=== PATIENT | female | born 1940 | race Caucasian/White ===

== ENCOUNTER 2016-04-07 08:12 | Inpatient (IN) | payer MEDICARE, BC ==
[~2016-04-07] VITALS: Ht 182.9 cm; Wt 76.4 kg
[2016-04-12] MEDS ORDERED: NEXI20CA PO (13:37)
[2016-06-23] MEDS ORDERED: CRANCAP2 PO (08:40)
[2016-07-18] MEDS ORDERED: ceFAZolin 2 GM PREMIX 50 ML IV SCH (06:30)
[2016-07-18] MEDS ORDERED: CHLORHEXIDINE GLUCONATE 4% SOLN 120 ML BTL TOP SCH (06:30)
[2016-07-18] MEDS ORDERED: ALEV220T14 PO (07:27)
[2016-07-18 07:28] VITALS: BP 176/91; PULSE 98; RESP 20; TEMP 97.9; O2SAT 96
[2016-07-18] MEDS ORDERED: METOPROLOL TARTRATE 25 MG TAB PO PRN (07:30)
[2016-07-18] MEDS ORDERED: LACTATED RINGER'S 1000 ML IV SCH (07:30)
[2016-07-18] MEDS ORDERED: INSULIN HUMAN REGULAR 1,000 UNITS/10 ML VIAL SQ PRN (07:30)
[2016-07-18] MEDS ORDERED: SODIUM CHLORID 0.9% 500 ML IV SCH (07:30)
[2016-07-18] MEDS ORDERED: MIDAZOLAM HCL 5 MG/5 ML VIAL ONE ×2 (08:47→09:56)
[2016-07-18] MEDS ORDERED: GENTAMICIN SULFATE 80 MG/2 ML VIAL ONE (08:59)
[2016-07-18] MEDS ORDERED: DEXAMETHASONE SOD PHOS 4 MG/ML VIAL ONE (09:29)
[2016-07-18] MEDS ORDERED: FAMOTIDINE 20 MG/2 ML VIAL ONE (09:42)
[2016-07-18] MEDS ORDERED: ACETAMINOPHEN 1000 MG/100 ML VIAL IV ONE (09:42)
[2016-07-18] MEDS ORDERED: PROPOFOL 200 MG/20 ML AMP IV ONE (09:58)
[2016-07-18] MEDS ORDERED: ONDANSETRON HCL 4 MG/2 ML VIAL IV PUSH ONE (09:58)
[2016-07-18] MEDS ORDERED: EXPAREL PERI-ARTICULAR INJECTION (TOTAL VOL. 100 ML) P-ARTICULR SCH ×2 (10:00)
[2016-07-18] MEDS ORDERED: TRANEXAMIC ACID IV SCH ×2 (10:00→13:00)
[2016-07-18] MEDS ORDERED: SODIUM CHLORIDE 0.9% IV SCH ×2 (10:00→13:00)
[2016-07-18] MEDS ORDERED: BUPIVACAINE HCL PF 0.5% 30 ML VIAL NB ONE (11:21)
[2016-07-18] MEDS ORDERED: DO NOT ADM ANY ANTICOAGULANT DRUGS XX PRN (12:33)
[2016-07-18] MEDS ORDERED: MAGNESIUM HYDROXIDE SUSP 30 ML CUP PO PRN (13:00)
[2016-07-18] MEDS ORDERED: MORPHINE SULFATE 4 MG/ML INJ IV PUSH PRN (13:00)
[2016-07-18] MEDS ORDERED: SODIUM CHLORIDE 0.9% FLUSH 5 ML FLUSH IVF PRN (13:00)
[2016-07-18] MEDS ORDERED: TRANEXAMIC ACID INJ 0 MG in SODIUM CHLORIDE 0.9% INJ 100 ML IV SCH (13:00)
[2016-07-18] MEDS ORDERED: Post-op Orders (for Pharmacy) MISC XX ONE (13:00)
[2016-07-18] MEDS ORDERED: ONDANSETRON HCL 4 MG/2 ML VIAL IVP PRN (13:00)
[2016-07-18] MEDS: LACTATED RINGER'S 1000 ML INJ 1,000 ML IV SCH (13:20)
[2016-07-18] MEDS: KETOROLAC TROMETHAMINE 30 MG/ML (IVP) VIAL IVP SCH ×2 (13:37→18:43)
--- NOTE | 2016-07-18 14:41 | RADRPT ---
EXAM DATE/TIME: 07/18/2016 13:09 [place] COMPARISON: No previous studies available for comparison. INDICATIONS : Post op right knee surgery. MEDICAL HISTORY : None. SURGICAL HISTORY : None. ENCOUNTER: Initial ACUITY: 1 day PAIN SCORE: 0/10 LOCATION: Right Knee. FINDINGS: AP and lateral views of the right knee were obtained and demonstrate the patient is status post arthr oplasty. The femoral and tibial components are intact and in normal alignment. There are postoperativ e changes involving the patella. A surgical drain is noted in place. CONCLUSION: Expected post operative changes status post arthroplasty. Emil Green MD on July 18, 2016 at 14:35 Board Certified Radiologist. This report was verified electronically.
--- NOTE | 2016-07-18 17:16 | MB ---
cc: ALEYDA PENA MD DATE OF CONSULTATION 06/17/16 DATE OF [address] Mcginnis REASON FOR CONSULTATION Medical management postoperatively. HISTORY OF PRESENT ILLNESS The patient is a very pleasant 76-year female with past medical history of gastroesophageal reflux disease. The patient is only taking Nexium at home. Also, the patient has arthritis for which she is taking care of by her primary care doctor and orthopedic as an outpatient. She failed outpatient therapy. She was advised to have a total knee arthroplasty. The patient was admitted today and had a total knee arthroplasty. The patient is seen in the PACU. At present, in the PACU the patient has no complaint. She denies any headache, dizziness, nausea, vomiting, chest pain, diaphoresis or palpitations. She has no pain, just slight ache at the surgical site. Her sensation is back. PAST MEDICAL HISTORY Gastroesophageal reflux disease. MEDICATIONS Nexium. ALLERGIES IODINE KEFLEX REVIEW OF SYSTEMS Negative for 10 systems. SOCIAL HISTORY The patient denies smoking, drinking or doing any drugs. FAMILY HISTORY Noncontributory. PHYSICAL EXAMINATION GENERAL: The patient is alert and oriented lying on bed without any apparent distress. VITAL SIGNS: The patient is afebrile, pulse is 68, respiratory rate 16, blood pressure 145/85, pulse of 98% on 2 liters. HEENT: Head is normocephalic. Negative conjunctival icterus mouth unremarkable. NECK: Supple. Negative increased JVD, negative thyromegaly. Central trachea. RESPIRATORY: Clear to auscultation. CARDIOVASCULAR: S1, [id number], negative S3 gallop. GI: Abdomen soft, no organomegaly. Positive bowel sounds. MUSCULOSKELETAL: Extremities no cyanosis or pedal edema appreciated. TERMITE TECHNICIAN: Alert and oriented. Normal facial features, moving bilateral toes. Moving upper extremities. LABORATORY DATA No new labs were reviewed. IMAGING STUDIES X-ray of the knee shows expected postoperative changes status post arthroplasty. ASSESSMENT 1. Right total knee arthroplasty due to severe arthritis. 2. Gastroesophageal reflux disease. RECOMMENDATIONS 1. Postop antibiotic, analgesics, anticoagulant and PT as per Ortho. 2. We will continue PPI for her gastroesophageal reflux disease. 3. Monitor blood pressure. 4. CBC, BMP in the morning. 5. Discussed with the patient. Thank you Dr. Mcginnis for the consult. We will follow with you. MD ROSHAN Ceron /4:19 PM /5:03 PM
[2016-07-18 17:45] VITALS: BP 124/66; PULSE 94; RESP 18; TEMP 96; O2SAT 96
[2016-07-18] MEDS ORDERED: ZOLPIDEM TARTRATE 5 MG TAB PO PRN (21:00)
--- NOTE | 2016-07-18 23:16 | MP ---
cc: Jordana MANN. DATE OF SURGERY: 07/18/2016 PREOPERATIVE DIAGNOSIS: Primary osteoarthritis right knee. POSTOPERATIVE DIAGNOSIS Primary osteoarthritis right knee. OPERATION PERFORMED Right total knee arthroplasty with Silke Triathlon Prosthesis (uncemented). SURGEON Venkatesh Mann MD ANESTHESIA Spinal with supplemental adductor canal block and local. INDICATIONS AND FINDINGS This 76 year-old woman has had right knee pain for the past 18 months. She did not respond to arthroscopic surgery and progressively worsened, in spite of the use of nonsteroidal anti-inflammatories, activity modification, exercise, intra-articular corticosteroids and ambulatory aids. The ability to walk was limited. She has difficulty ascending and descending stairs and getting out of a chair. She has difficulty going to her condo up and down the stairs. PHYSICAL FINDINGS Physical findings show some genu varum with medial laxity and crepitation on motion. There is tenderness in the medial compartment. She has effusion. RADIOGRAPHIC FINDINGS Radiographic findings including an x-ray and MRI showed significant arthritis in the knee with loss of articular cartilage to [id number] on the PA flexion view and the medial compartments and irregularity in the medial joint and some lateral and patellofemoral. OPERATIVE FINDINGS Operative findings showed significant arthritis in the medial compartment with exposed subchondral bone on femur and tibia. In addition there was irregularity in the lateral compartment and the patellofemoral compartment. The prosthesis used was a [place] Triathlon prosthesis. The femoral component was a size 3 right cruciate-retaining cementless. The tibia was a Tritanium baseplate size 4 with a an 11-mm spacer of X3 polyethylene also cruciate-retaining. The patella was a Tritanium backed patella with a size 32 asymmetric. PROCEDURE The patient was brought to the operating room and general anesthetic was administered. The patient had an adductor canal block preoperatively. She was brought to the operating room and had a general anesthetic administered. She was placed in a supine position on the operating table with a small bolster under the right hip. A pneumatic tourniquet was applied to the right thigh. The limb was then prepped with alcohol, Hibiclens and Chloraprep, and draped in the usual manner with the knee draped free. An appropriate time-out procedure was carried out. The wound site was injected after marking with Exparel. An anterior incision was then made from about three fingerbreadths above the superior medial pole of the patella down to the tibial tubercle on the medial side. The incision was deepened through the subcutaneous tissues to the retinacular structures which were exposed medially and laterally. The medial retinacular incision was made from the superior medial pole of the patella down to the tibial tubercle and up into the quadriceps tendon splitting it longitudinally in the medial one-third. The patella was reflected. Medial and lateral dissection was carried out. The infrapatellar fat pad was debulked. The posterior surface of patella was excised with the oscillating saw taking care to prevent injury to associated structures. After the patellar protector was placed, attention was directed the femur. Houston's Line was marked. A fenestration was made in the distal end of the femur and proximal end of the tibia for intramedullary referencing guides. The distal femoral cutting guide and jig were assembled for 5 degree 8-mm cut. Cutting block was stabilized with pins. The jig was removed. The distal femoral cut was completed with the oscillating saw. A sizing guide was positioned along Houston's Line and the epicondylar axis. The size of the femur was determined to be a size 3. The four-in-one cutting block was then positioned in place. Anterior and posterior cuts were made followed by posterior and anterior chamfer cuts. Osteophytes were trimmed. Medial and lateral meniscectomies were completed. The posterior osteophytes were trimmed. The tibia resection guide was positioned in place with the intramedullary referencing guide. The alignment was checked and the guide stabilized with pins. The depth of cut was then verified with the stylus. The cutting block was stabilized with pins. The jig was removed. The spacer block was used to determine the depth of cut. The proximal tibial cutting guide was adjusted and stabilized. The proximal tibial cut was completed with the oscillating saw. After checking again with the sizing block, it was determined that the prosthesis would be an 11 mm one. The tibial baseplate size 4 with an 11 mm spacer was inserted. This appeared to be appropriate. Femoral component was impacted into place. The patella drill guide was positioned in place and patella drill holes made. The 32 millimeter patella was chosen. The knee was taken through a range of motion which was easily 0 degrees extension to 145 degrees of flexion with excellent stability and flexion and extension. The femoral drill holes were made. The femoral and patella trial components were removed. The tibial spacer trial was removed after using the tibial punch through its guide. The tibial baseplate trial was removed. The tibial drill guide was positioned in place. Drill holes were made. Exparel was then used throughout the knee, especially in the posterior capsule. After cleaning the cut ends of bone with pulse lavage, the tibial baseplate was impacted into place and seated appropriately. An 11 millimeter spacer was inserted. The femoral component was then impacted into place and seated appropriately. The patella was then positioned in place and seated appropriately with the patella device. Drains were brought out the superolateral aspect of the suprapatellar pouch. Hemostasis was achieved with electrocautery. Wound closure then commenced using 0 Vicryl interrupted [id number] sutures for the retinacular and capsular structures, 2-0 Vicryl interrupted simple sutures with buried knots for the subcutaneous tissues and 4-0 Monocryl continuous subcuticular closure for the skin. The wound was dressed with Steri-Strips followed by dry dressing, sterile Sof-Rol, cooling pad further sterile Sof-Rol and Javy bandage from the base of the toe to midthigh. The patient was transferred from the operating room to the recovery room in satisfactory condition having tolerated the procedure well. Counts were correct. Specimens none. Estimated blood loss 100 mL. MD TRINH Funk/JERROD /12:25 PM /10:18 PM
[2016-07-19] VITALS (8 sets, daily range): BP systolic 118–148; BP diastolic 61–75; PULSE 69–87; RESP 13–18; TEMP 95.6–98.4; O2SAT 93–98
[2016-07-19] MEDS: KETOROLAC TROMETHAMINE 30 MG/ML (IVP) VIAL IVP SCH ×4 (00:05→18:09)
[2016-07-19] MEDS: LACTATED RINGER'S 1000 ML INJ 1,000 ML IV SCH ×2 (01:28→13:58)
[2016-07-19] MEDS: SODIUM CHLORIDE 0.9% FLUSH 5 ML FLUSH IVF SCH ×3 (05:39→23:12)
--- NOTE | 2016-07-19 06:44 | PD.ORT.PN ---
Subjective Post Op Day #: 1 Subjective Remarks She is doing well. There is little pain. She did not dangle or have PT. Objective Vitals Vital Signs Date Time Temp Pulse Resp B/P Pulse Ox O2 Delivery O2 Flow Rate FiO2 07/19/16 04:31 98.4 69 18 124/68 96 07/19/16 00:24 97.6 78 18 122/75 96 07/18/16 20:52 21 07/18/16 17:45 96.0 94 18 124/66 96 07/18/16 17:00 94 16 118/63 95 Room Air 07/18/16 16:15 16 98 07/18/16 16:00 62 16 128/84 97 Nasal Cannula 2 07/18/16 15:00 64 16 123/78 97 Nasal Cannula 2 07/18/16 14:00 68 16 145/85 98 Nasal Cannula 2 07/18/16 13:45 62 16 137/81 97 Nasal Cannula 2 07/18/16 13:30 66 16 146/82 98 Nasal Cannula 2 07/18/16 13:15 62 16 143/77 97 Nasal Cannula 2 07/18/16 13:00 64 16 126/72 95 Nasal Cannula 2 07/18/16 12:45 72 16 118/71 95 Nasal Cannula 2 07/18/16 12:34 97.7 86 16 115/74 93 Nasal Cannula 2 07/18/16 07:28 97.9 98 20 176/91 96 I/O 07/18/16 07/18/16 07/18/16 07/19/16 07/19/16 07/19/16 07:00 15:00 23:00 07:00 15:00 23:00 Intake Total 50 ml 500 ml 600 ml Output Total 60 ml 1040 ml 50 ml Balance -10 ml -540 ml 550 ml Intake Oral 500 ml 600 ml IV Total 50 ml Output Urine Total 900 ml Drainage Total 60 ml 140 ml 50 ml # Voids 5 # Bowel Movements 0 0 Imaging Last 24 hours Impressions Knee X-Ray 07/18/16 1258 Signed Impressions: Service Date/Time: Monday, July 18, 2016 13:09 - CONCLUSION: Expected post operative changes status post arthroplasty. Emil Green MD Objective Remarks She is resting comfortably, supine in bed in the [facility]. The neurovascular status is intact. The original dressing is dry and intact. Assessment & Plan Ortho Post Op Day #: 1 Problem List: (1) Status post total right knee replacement Plan: Continue postop care. Start PT. Assessment and Plan Condition: Good. Orthopaedically stable. DVT prophylaxis: WILBER stockings, sequentials, early mobilization, ASA. Discharge plans: Home with [facility], probably tomorrow. Has appointment. Jordana Mcginnis MD ([place]) Jul 19, 2016 06:44
[2016-07-19 08:32] LABS: HEMATOCRIT 37.7 % (35.0-46.0); MEAN CELL VOLUME 96.3 FL (80.0-100.0); MEAN CORPUSCULAR HEMOGLOBIN 33.5 PG (27.0-34.0); MEAN CORPUSCULAR HGB CONC 34.8 % (32.0-36.0); PLATELET COUNT 149 TH/MM3 (150-450); RED BLOOD COUNT 3.92 MIL/MM3 (4.00-5.30); REVIEW FLAG FINAL; WHITE BLOOD COUNT 9.9 TH/MM3 (4.0-11.0)
[2016-07-19 08:42] LABS: BICARBONATE 26.1 MEQ/L (21.0-32.0); POTASSIUM 3.6 MEQ/L (3.5-5.1)
[2016-07-19] MEDS ORDERED: NON-FORMULARY DRUG (Vitamins C & E (Cranberry Urinary Comfort) 2 CAP) PO SCH (09:00)
[2016-07-19] MEDS: PANTOPRAZOLE SOD 20 MG DELAYED RELEASE TAB PO SCH (09:38)
[2016-07-19] MEDS: ACETAMINOPHEN/HYDROcodone 325 MG/7.5 MG TAB PO PRN ×2 (09:41→23:12)
[2016-07-19] MEDS ORDERED: PNEUMOCOCCAL POLYVALENT INJ 25 MCG/0.5 ML SYR IM ONE (10:00)
[2016-07-19] MEDS: RIVAROXABAN 10 MG TAB PO SCH (11:36)
--- NOTE | 2016-07-19 13:58 | HHI.PR ---
Subjective Remarks No chest pain no , shortness of breath Cough, states seasonal No headache Appetite good Afebrile Objective Objective Results - Vital Signs Date Time Temp Pulse Resp B/P Pulse Ox O2 Delivery O2 Flow Rate FiO2 07/19/16 09:05 93 21 07/19/16 04:31 98.4 69 18 124/68 96 07/19/16 00:24 97.6 78 18 122/75 96 07/18/16 20:52 21 07/18/16 17:45 96.0 94 18 124/66 96 07/18/16 17:00 94 16 118/63 95 Room Air 07/18/16 16:15 16 98 07/18/16 16:00 62 16 128/84 97 Nasal Cannula 2 07/18/16 15:00 64 16 123/78 97 Nasal Cannula 2 07/18/16 14:00 68 16 145/85 98 Nasal Cannula 2 I/O 07/18/16 07/18/16 07/18/16 07/19/16 07/19/16 07/19/16 07:00 15:00 23:00 07:00 15:00 23:00 Intake Total 50 ml 500 ml 600 ml Output Total 60 ml 1040 ml 50 ml Balance -10 ml -540 ml 550 ml Intake Oral 500 ml 600 ml IV Total 50 ml Output Urine Total 900 ml Drainage Total 60 ml 140 ml 50 ml # Voids 5 # Bowel Movements 0 0 Result Diagram: 07/19/1632 07/19/16 0732 ROS General: Weakness (generalized), Other (10 point ROS complete, mild generalized weakness postop otherwise negative exam) Physical Exam Physical Exam PHYSICAL EXAMINATION GENERAL: This is a well-developed, well-nourished female who appears to be in no acute distress. She is alert and awake, responds to verbal stimuli. HEAD: Normocephalic without any lesion or mass noted. Facial features appear symmetric. OROPHARYNGEAL: Oropharynx without erythema or edema. NECK: Supple. No nuchal rigidity or lymphadenopathy. Trachea midline without deviation. CARDIAC: Regular rhythm, regular rate, S1 and S2 are heard. Murmur none; no gallops or rubs. LUNGS: Clear to auscultation bilaterally. No wheeze, no rhonchi or no rale. No use of accessory muscles on inspiration or expiration. ABDOMEN: Soft, nontender, no organomegaly or masses. Bowel sounds are heard in all four quadrants. No rebound. No guarding. EXTREMITIES: Trace edema right leg. Wrapped securely with cooling apparatus on. Drainage intimal dark red in container. Pulses equal bilateral. No cyanosis. NEUROLOGICAL: Patient mood and affect appropriate. No focal deficit SKIN:Warm and moist, dry Objective Remarks I Am doing okay I guess. Got up and walked X 1 today. A/P Assessment and Plan 1. Right total knee arthroplasty due to severe arthritis. 2. Gastroesophageal reflux disease. 3. Hyperglycemia mild, no known diabetes RECOMMENDATIONS Postop antibiotic, analgesics, anticoagulant and PT as per Ortho. We will continue PPI for her gastroesophageal reflux disease. Monitor blood pressure normal limits, afebrile, rate 60s to 90s, respirations 18. Discussed with the patient medical plan of care and any concerns Monitor nutrition Monitor blood sugar, and or any symptoms of hyperglycemia Discharge Planning rehab Discussed With: Nurse, Family (patient), Other (Dr. Meyers, patient seen on his behalf) Ami Ding Jul 19, 2016 13:58 Ami Ding Jul 19, 2016 13:58
[2016-07-19] MEDS: DOCUSATE SODIUM 100 MG CAP PO SCH (23:11)
[2016-07-20] VITALS (7 sets, daily range): BP systolic 97–138; BP diastolic 54–83; PULSE 72–89; RESP 16–20; TEMP 95.4–98.6; O2SAT 93–97
[2016-07-20] MEDS: KETOROLAC TROMETHAMINE 30 MG/ML (IVP) VIAL IVP SCH ×2 (01:19→08:51)
[2016-07-20] MEDS: LACTATED RINGER'S 1000 ML INJ 1,000 ML IV SCH ×2 (02:28→14:58)
--- NOTE | 2016-07-20 06:49 | PD.ORT.PN ---
Subjective Post Op Day #: 2 Subjective Remarks She is doing well. There is a little more pain than yesterday. She did well with PT. She has 13 steps to ascend/descend to access her home. She lives alone. Range of Motion 0 to 90 degrees. Distance Walked 100 feet, then 150 feet. Objective Vitals Vital Signs Date Time Temp Pulse Resp B/P Pulse Ox O2 Delivery O2 Flow Rate FiO2 07/20/16 04:00 97.2 81 20 137/83 95 07/20/16 00:00 97.5 81 20 130/77 93 07/19/16 20:40 97.5 80 15 118/61 95 07/19/16 19:39 97.5 81 13 118/61 95 07/19/16 18:35 21 07/19/16 15:45 96.1 75 13 120/63 98 07/19/16 12:00 95.8 87 16 128/71 97 07/19/16 09:05 93 21 07/19/16 08:00 95.6 84 16 148/71 95 I/O 07/19/16 07/19/16 07/19/16 07/20/16 07/20/16 07/20/16 07:00 15:00 23:00 07:00 15:00 23:00 Intake Total 600 ml 450 ml 240 ml 220 ml Output Total 50 ml 220 ml Balance 550 ml 450 ml 20 ml 220 ml Intake Oral 600 ml 240 ml 220 ml IV Total 450 ml Drainage Total 50 ml 220 ml # Voids 5 1 2 # Bowel Movements 0 0 0 220 drainage recorded was 170+50ml. Result Diagram: 07/19/16 0732 07/19/16 0732 Imaging Last 24 hours Impressions Knee X-Ray 07/18/16 1258 Signed Impressions: Service Date/Time: Monday, July 18, 2016 13:09 - CONCLUSION: Expected post operative changes status post arthroplasty. Emil Green MD Objective Remarks She is resting comfortably, supine in bed in the [facility]. The neurovascular status is intact. The original dressing is dry and intact. Assessment & Plan Ortho Post Op Day #: 2 Problem List: (1) Status post total right knee replacement Plan: Continue postop care and PT. Assessment and Plan Condition: Good. Orthopaedically stable. DVT prophylaxis: WILBER stockings, sequentials, early mobilization, Xarelto. Discharge plans: SNF for rehab, probably tomorrow. Has appointment. Rx: [place] 7.5/325. Jordana Mcginnis MD ([place]) Jul 20, 2016 06:49
[2016-07-20 06:58] LABS: HEMATOCRIT 35.6 % (35.0-46.0); REVIEW FLAG FINAL
[2016-07-20] MEDS ORDERED: XARE10TA PO (08:05)
[2016-07-20] MEDS ORDERED: HYDR-3580 PO (08:05)
--- NOTE | 2016-07-20 08:08 | HHI.FF ---
Face to Face Verification Diagnosis: (1) Status post total right knee replacement Physical Therapy Gait training Knee: Total knee, Protocol: Right, Gait training, Full weight bearing Right LE Weight Bearing: WB as tolerated Right LE Range of Motion: Active ROM (AROM, AAROM, PROM, PRE. ROM goal is 0 to 135 degrees. ROM in the OR was 0 to 145 degrees.) Nursing Nursing: Dressing changes Dressing Changes: Daily dressing change, Coverderm/Primapore Additional Instructions Remove steristrips on postop day 14. I have seen patient Mona San on 07/20/16. My clinical findings support the need for the requested home health care services because: Ltd mobility - disease progression Limited ability to care for self High risk of falls I certify that my clinical findings support that this patient is homebound because: Post-op weakness Unsteady gait/balance Unsafe to leave home unassisted Jordana Mcginnis MD (Charles) Jul 20, 2016 08:08
[2016-07-20] MEDS: PANTOPRAZOLE SOD 20 MG DELAYED RELEASE TAB PO SCH (08:51)
[2016-07-20] MEDS: SODIUM CHLORIDE 0.9% FLUSH 5 ML FLUSH IVF SCH ×2 (08:51→21:00)
[2016-07-20] MEDS: DOCUSATE SODIUM 100 MG CAP PO SCH ×2 (08:51→20:18)
[2016-07-20] MEDS: ACETAMINOPHEN/HYDROcodone 325 MG/7.5 MG TAB PO PRN ×3 (08:52→23:19)
[2016-07-20] MEDS: RIVAROXABAN 10 MG TAB PO SCH (11:28)
--- NOTE | 2016-07-20 13:22 | HHI.PR ---
Subjective Subjective Remarks Ambulating today No chest pain Shortness of breath MOM given for bowel regimen Mild to moderate pain Review of Systems Constitutional Constitutional: Weakness (mild postop) Constitutional Remarks 10 point ROS done. Positives noted some mild generalized weakness Musculoskeletal MS: Stiffness MS Remarks Right total knee, dressing clean, to be changed today Integumentary Skin: Wounds (Clean, dressing dry) Psychiatric Psychiatric: Normal Mood Vitals/Results Intake & Output 07/19/16 07/19/16 07/20/16 15:00 23:00 07:00 Intake Total 450 ml 240 ml 220 ml Output Total 220 ml Balance 450 ml 20 ml 220 ml Intake Oral 240 ml 220 ml IV Total 450 ml Drainage Total 220 ml # Voids 1 2 # Bowel Movements 0 0 Vital Signs Vital Signs Date Time Temp Pulse Resp B/P Pulse Ox O2 Delivery O2 Flow Rate FiO2 07/20/16 11:40 95.4 77 16 97/54 94 07/20/16 08:00 95.6 72 17 138/75 95 07/20/16 04:00 97.2 81 20 137/83 95 07/20/16 00:00 97.5 81 20 130/77 93 07/19/16 20:40 97.5 80 15 118/61 95 07/19/16 19:39 97.5 81 13 118/61 95 07/19/16 18:35 21 07/19/16 15:45 96.1 75 13 120/63 98 CBC/BMP: 07/20/16 0600 07/19/16 0732 Lab Results Laboratory Tests Test 07/20/16 06:00 Hemoglobin 12.0 GM/DL Hematocrit 35.6 % Imaging Remarks Last Impressions Knee X-Ray 07/18/16 1258 Signed Impressions: Service Date/Time: Monday, July 18, 2016 13:09 - CONCLUSION: Expected post operative changes status post arthroplasty. Emil Green MD Current Medications Active Medications Docusate Sodium (Colace) 100 mg BID PO; Start 07/19/16 at 21:00 Physical Exam General General Appearance: Well Developed, Well Nourished, No Acute Distress Eyes Eye Exam: Pupils Equal, Pupils Reactive Ears & Nose Ears & Nose Exam: Nasal Mucosa [place] Throat Throat Exam: Oral Mucosa [place] & Moist Neck Neck Exam: Neck Supple, Trachea Midline Pulmonary Resp Exam: Clear Bilaterally, Breath Sounds Equal, No Distress Cardiology CV Exam: Regular Gastrointestinal/Abdomen GI Exam: Bowel Sounds Present GI Remarks No BM in 2 days. MOM taken today Genitourinary Exam: Clear Urine Musculoskeletal MS Exam: Normal Tone, Good Strength MS Remarks Right right knee total, postop day 2 Integumentary Skin Exam: Clear, Warm, Dry, Normal Turgor Skin Remarks Clean incision line right knee Extremeties Extremities Exam: No Edema, Trace Edema Neurologic Neuro Exam: Alert, Awake, Oriented, Speech Clear, Moving All Extremities VTE Prophylaxis VTE Prophylaxis Device: SCDs Assessment/Plan Assessment/Plan Assessment and Plan 1. Right total knee arthroplasty due to severe arthritis. 2. Gastroesophageal reflux disease. 3. Hyperglycemia mild, no known diabetes 4. Debility mild, 5. Constipation mild RECOMMENDATIONS Postop antibiotic, analgesics, anticoagulant and PT as per Ortho. We will continue PPI for her gastroesophageal reflux disease. Monitor blood pressure normal limits, afebrile, rate 60s to 90s, respirations 18. Discussed with the patient medical plan of care and any concerns Monitor nutrition, appetite good Monitor blood sugar, and or any symptoms of hyperglycemia BMP in a.m. Monitor bowel regimen. Took MOM today. Denies any acute issues for now Plan to go to rehabilitation after 3 nights stay. Discharge Planning rehab Discussed With: Nurse, Family (patient), Other (Dr. Meyers, patient seen on his behalf) Discussed Condition with: Patient Ami DingSulma CEVALLOS Jul 20, 2016 13:22
[2016-07-21] VITALS: BP 121/62; PULSE 86; RESP 16; TEMP 99.4; O2SAT 94
[2016-07-21] MEDS: LACTATED RINGER'S 1000 ML INJ 1,000 ML IV SCH (03:28)
[2016-07-21] MEDS: ACETAMINOPHEN/HYDROcodone 325 MG/7.5 MG TAB PO PRN ×2 (04:19→09:45)
[2016-07-21 06:49] LABS: POTASSIUM 3.5 MEQ/L (3.5-5.1)
[2016-07-21 08:12] VITALS: BP 138/67; PULSE 80; RESP 16; TEMP 98.6; O2SAT 94
--- NOTE | 2016-07-21 08:45 | PD.ORT.PN ---
Subjective Post Op Day #: 3 Subjective Remarks She is doing well. There is less pain than yesterday. She has done well with PT. She has 13 steps to ascend/descend to access her home. She lives alone. Range of Motion -4 to 96 degrees. Distance Walked 200 feet. Objective Vitals Vital Signs Date Time Temp Pulse Resp B/P Pulse Ox O2 Delivery O2 Flow Rate FiO2 07/21/16 00:00 99.4 86 16 121/62 94 07/20/16 21:08 21 07/20/16 20:30 98.6 84 16 109/54 95 07/20/16 19:05 89 20 101/54 97 07/20/16 16:05 97.5 82 17 101/76 96 07/20/16 11:40 95.4 77 16 97/54 94 I/O 07/20/16 07/20/16 07/20/16 07/21/16 07/21/16 07/21/16 07:00 15:00 23:00 07:00 15:00 23:00 Intake Total 220 ml 720 ml 240 ml 480 ml Output Total 40 ml 70 ml Balance 180 ml 650 ml 240 ml 480 ml Intake Oral 220 ml 720 ml 240 ml 480 ml Drainage Total 40 ml 70 ml # Voids 2 3 2 3 # Bowel Movements 0 1 2 0 Result Diagram: 07/20/16 0600 07/21/16 0600 Imaging Last 24 hours Impressions Knee X-Ray 07/18/16 1258 Signed Impressions: Service Date/Time: Monday, July 18, 2016 13:09 - CONCLUSION: Expected post operative changes status post arthroplasty. Emil Green MD Objective Remarks She is resting comfortably, supine in bed in the [facility]. The neurovascular status is intact. The dressing is dry and intact. There is no erythema or induration. Assessment & Plan Ortho Post Op Day #: 3 Problem List: (1) Status post total right knee replacement Plan: Continue postop care and PT. Assessment and Plan Condition: Good. Orthopaedically stable. DVT prophylaxis: WILBER stockings, sequentials, early mobilization, Xarelto. Discharge plans: SNF for rehab today. Has appointment. Rx: [place] 7.5/325. Jordana Mcginnis MD ([place]) Jul 21, 2016 08:45
[2016-07-21] MEDS: DOCUSATE SODIUM 100 MG CAP PO SCH (09:41)
[2016-07-21] MEDS: PANTOPRAZOLE SOD 20 MG DELAYED RELEASE TAB PO SCH (09:41)
[2016-07-21] MEDS: SODIUM CHLORIDE 0.9% FLUSH 5 ML FLUSH IVF SCH (09:41)
--- NOTE | 2016-07-21 11:02 | HHI.PR ---
Subjective Interval History Patient is feeling better Some ache at surgical site Did walk today Review of system for 10 point system otherwise unremarkable Review of Systems Constitutional Constitutional: Weakness (mild postop) Musculoskeletal MS: Stiffness Integumentary Skin: Wounds (Clean, dressing dry) Psychiatric Psychiatric: Normal Mood Vitals/Results Intake & Output 07/20/16 07/20/16 07/21/16 15:00 23:00 07:00 Intake Total 720 ml 240 ml 480 ml Output Total 70 ml Balance 650 ml 240 ml 480 ml Intake Oral 720 ml 240 ml 480 ml Drainage Total 70 ml # Voids 3 2 3 # Bowel Movements 1 2 0 Vital Signs Vital Signs Date Time Temp Pulse Resp B/P Pulse Ox O2 Delivery O2 Flow Rate FiO2 07/21/16 08:12 98.6 80 16 138/67 94 07/21/16 00:00 99.4 86 16 121/62 94 07/20/16 21:08 21 07/20/16 20:30 98.6 84 16 109/54 95 07/20/16 19:05 89 20 101/54 97 07/20/16 16:05 97.5 82 17 101/76 96 07/20/16 11:40 95.4 77 16 97/54 94 CBC/BMP: 07/20/16 0600 07/21/16 0600 Lab Results Laboratory Tests Test 07/21/16 06:00 Sodium Level 141 MEQ/L Potassium Level 3.5 MEQ/L Chloride Level 104 MEQ/L Carbon Dioxide Level 27.0 MEQ/L Anion Gap 10 MEQ/L Blood Urea Nitrogen 9 MG/DL Creatinine 0.53 MG/DL Estimat Glomerular Filtration 112 ML/MIN Rate Random Glucose 102 MG/DL Calcium Level 8.5 MG/DL Physical Exam General General Appearance: Well Developed, Well Nourished, No Acute Distress Eyes Eye Exam: Pupils Equal, Pupils Reactive Ears & Nose Ears & Nose Exam: Nasal Mucosa Ivey Throat Throat Exam: Oral Mucosa Ivey & Moist Neck Neck Exam: Neck Supple, Trachea Midline Pulmonary Resp Exam: Clear Bilaterally, Breath Sounds Equal, No Distress Cardiology CV Exam: Regular Gastrointestinal/Abdomen GI Exam: Bowel Sounds Present Genitourinary Exam: Clear Urine Musculoskeletal MS Exam: Normal Tone, Good Strength MS Remarks Dressing on surgical area Integumentary Skin Exam: Clear, Warm, Dry, Normal Turgor Extremeties Extremities Exam: No Edema, Trace Edema Neurologic Neuro Exam: Alert, Awake, Oriented, Speech Clear, Moving All Extremities VTE Prophylaxis VTE Prophylaxis Device: SCDs VTE Remarks Xarelto Assessment/Plan Assessment/Plan Assessment and Plan 1. Right total knee arthroplasty due to severe arthritis. 2. Gastroesophageal reflux disease. 3. Hyperglycemia mild, no known diabetes 4. Debility mild, 5. Constipation mild RECOMMENDATIONS Postop antibiotic, analgesics, anticoagulant and PT as per Ortho. continue PPI for her gastroesophageal reflux disease. Stable blood pressure Labs reviewed Discussed with the patient medical plan of care and any concerns Monitor nutrition, appetite good Monitor bowel regimen. Denies any acute issues for now Plan to go to rehabilitation hopefully today. Mary Meyers MD Jul 21, 2016 11:02
[2016-07-21] MEDS: RIVAROXABAN 10 MG TAB PO SCH (11:26)
[2016-07-21 12:10] VITALS: BP 98/53; PULSE 76; RESP 16; TEMP 97.1; O2SAT 98
--- NOTE | 2016-09-06 08:01 | MD ---
cc: Jordana MANN. ADMISSION DATE: 07/18/2016 DISCHARGE DATE: 07/21/2016 ADMISSION DIAGNOSIS Primary osteoarthritis right knee FINAL DIAGNOSIS Primary osteoarthritis right knee OPERATION PERFORMED Right total knee arthroplasty using a Silke Triathlon prosthesis (uncemented). PRESENT ILLNESS This 76-year-old woman has had 18 months of right knee pain that did not respond to conservative measures and arthroscopic surgery. She has used anti-inflammatory agents, activity modification, exercises, intra-articular steroids and ambulatory aids. She has difficulty ascending and descending stairs and getting out of a chair. She has had difficulty ambulating. Physical findings showed genu varum with medial laxity and crepitation on motion. There is tenderness in the medial compartment. She had an effusion. Radiographic findings showed changes consistent with loss of articular cartilage to [id number] in the medial compartment with irregularity in the joint line and patellofemoral and lateral findings as well. HOSPITAL COURSE The patient was admitted on 07/18/2016. She had the above-noted operative procedure carried out after having an abductor canal block preoperatively. She tolerated the procedure well. In post anesthesia, she was started on a continuous passive motion device which was used throughout the procedure while in bed. She did not start therapy the day of surgery. She remained afebrile. There was very little pain. On the day after surgery, she was started on physical therapy. DVT prophylaxis was initiated with WILBER stockings, sequential and aspirin. By the second postoperative day, she had been doing relatively well with therapy. She was able to walk 100 feet and then 150 feet. Her range of motion was 0 degrees extension to 90 degrees of flexion. She did have difficulty With home and consideration was for appropriate discharge plans since she had 13 steps to ascend and descend to access her home and lives alone. She remained afebrile. Her hemoglobin was 13.1. She continued to progress well. DVT prophylaxis was initiated with WILBER stockings and Xarelto. Arrangements were being made for discharge to a prison facility. On the third postoperative day, she was continuing to make progress. She walked 200 feet. Her range of motion was minus 4 degrees extension to 96 degrees of flexion. She remained afebrile. She was discharged to a prison facility for rehabilitation on that date. She will continue with Xarelto as well as the [place]. She has a follow-up appointment. MD TRINH Funk/TRISTAN /6:29 PM /7:44 AM
== END 2016-07-21 12:55 | DRG 470 ==
LOC: HSDI 07-18 05:08 → N06B 07-18 17:41
PROVIDERS: ADMIT Orthopaedic Surgery; ATTEND Orthopaedic Surgery
PROC: 0QRD0JZ Replacement of Right Patella with Synthetic Substitute, Open Approach (ICD-10-PCS; 2016-07-18)
PROC: 3E0T3CZ (ICD-10-PCS; 2016-07-18)
PROC: 0SRC0JA Replacement of Right Knee Joint with Synthetic Substitute, Uncemented, Open Approach (ICD-10-PCS; principal; 2016-07-18 10:13)
DX: M17.11 Unilateral primary osteoarthritis, right knee (principal); K21.9 Gastro-esophageal reflux disease without esophagitis; M21.161 Varus deformity, not elsewhere classified, right knee; R73.9 Hyperglycemia, unspecified; K59.00 Constipation, unspecified; Z23 Encounter for immunization; Z87.891 Personal history of nicotine dependence
CPT/HCPCS: 73560; 80048; 85014; 85018; 85027; 86850; 86900; 86901; 90471; 90732; 94150; C1776; C9290; G0009; J0131; J0690; J1100; J1580; J1885; J2250; J2405; J3010; J7120

== ENCOUNTER → 2016-06-23 | Outpatient (CLI) | payer MEDICARE, BC ==
[~2016-06-23] MED LIST: ALEV220T14 PO; CRANCAP2 PO; HYDR-3580 PO; NEXI20CA PO; XARE10TA PO
[2016-06-23 09:15] LABS: HEMATOCRIT 45.1 % (35.0-46.0); MEAN CELL VOLUME 95.7 FL (80.0-100.0); MEAN CORPUSCULAR HGB CONC 34.5 % (32.0-36.0); PLATELET COUNT 146 TH/MM3 (150-450); RED BLOOD COUNT 4.71 MIL/MM3 (4.00-5.30); RED CELL DISTRIBUTION WIDTH 12.7 % (11.6-17.2); REVIEW FLAG FINAL; WHITE BLOOD COUNT 7.1 TH/MM3 (4.0-11.0)
[2016-06-23 09:18] LABS: APTT (PATIENT) 24.5 SEC (24.3-30.1)
[2016-06-23 09:40] LABS: BICARBONATE 29.3 MEQ/L (21.0-32.0); POTASSIUM 4.5 MEQ/L (3.5-5.1)
[2016-06-23 10:40] LABS: BACTERIA, URINE MANY /hpf; BLOOD, URINE MOD (NEG); COMMENT (UR) CATH-CULTURE IND; CULTURE IF INDICATED CATH CULTURE IND; GLUCOSE,URINE NEG (NEG); KETONE, URINE NEG (NEG); MUCUS URINE FEW /lpf (OCC); NITRITE,URINE NEG (NEG); PH, URINE 5.5 (5.0-8.5); SQUAMOUS EPITHELIAL CELL URINE 1 /hpf (0-5); URINE COLOR YELLOW (YELLW/STRAW)
== END ==
LOC: CPRE 11:53
PROVIDERS: ATTEND Orthopaedic Surgery
DX: Z01.812 Encounter for preprocedural laboratory examination (principal); M17.11 Unilateral primary osteoarthritis, right knee; M79.609 Pain in unspecified limb; B96.20 Unspecified Escherichia coli [E. coli] as the cause of diseases classified elsewhere; R82.99 Other abnormal findings in urine
CPT/HCPCS: 36415; 80048; 81001; 85027; 85610; 85730; 87077; 87086; 87186

== ENCOUNTER 2017-07-31 16:09 | Inpatient (IN) | payer MEDICARE, BC ==
[~2017-07-31] VITALS: Ht 152.4 cm; Wt 65.8 kg
[~2017-07-31 16:09] MED LIST changes: -ALEV220T14 PO
[2017-07-31 16:24] VITALS: BP 131/74; PULSE 89; RESP 19; TEMP 97.4; O2SAT 96
[2017-07-31] MEDS ORDERED: ESOM1CAP6 PO (16:38)
--- NOTE | 2017-07-31 16:47 | PD ---
HPI Chief Complaint: Abdominal Pain Time Seen by Provider: 16:36 Travel History International Travel<30 days: No Contact w/Intl Traveler<30days: No Traveled to known affect area: No History of Present Illness HPI 77yo F with PMH of GERD here with c/o nausea, vomiting and abdominal pain for 2 days. Said she has not been able to keep anything down and then started having abdominal pain and generalized weakness today. Said abdominal pain is generalized and started after vomiting. Denies any hematemesis. Denies any fever, chest pain, sob, diarrhea, dysuria, hematuria. Pt takes ibuprofen and nexium daily. Said she has neuropathy in her feet but does not want to take lyrica so take ibuprofen instead. Last colonoscopy was 2 years ago and normal. Normal bowel movement today. PFSH Past Medical History Arthritis: Yes Cardiovascular Problems: No Diabetes: No Endocrine: No GERD: Yes Genitourinary: Yes (FREQUENT UTI) Hepatitis: No Hiatal Hernia: Yes Immune Disorder: No Medical other: No Musculoskeletal: Yes (ARTHRITIS) Neurologic: No Psychiatric: No Reproductive: No Respiratory: No Thyroid Disease: No Influenza Vaccination: Yes ?: Not Past Surgical History Abdominal Surgery: Yes AICD: No Body Medical Devices: NA Cardiac Surgery: No Section: Yes (X 3) Cholecystectomy: Yes Ear Surgery: No Endocrine Surgery: No Eye Surgery: Yes (BILATERAL CATARACT, LASER LEFT EYE LENS) Genitourinary Surgery: No Gynecologic Surgery: Yes (PARTIAL HYSTERECTOMY, 3 C SECTIONS) Hysterectomy: Yes Joint Replacement: Yes (KNEE) Oral Surgery: No Pacemaker: No Thoracic Surgery: No Social History Alcohol Use: Yes (wine occ) Tobacco Use: No Substance Use: No Allergies-Medications (Allergen,Severity, Reaction): Coded Allergies: iodine (Unverified Adverse Reaction, Severe, FLUSH, 07/31/17) 05/19/13 DENIES ALLERGY potassium iodide (Unverified Adverse Reaction, Severe, FLUSH, 07/31/17) 05/19/13 DENIES ALLERGY povidone-iodine (Unverified Adverse Reaction, Severe, FLUSH, 07/31/17) 05/19/13 DENIES ALLERGY sodium iodide (Unverified Adverse Reaction, Severe, FLUSH, 07/31/17) 05/19/13 DENIES ALLERGY sodium iodide (Unverified Adverse Reaction, Severe, FLUSH, 07/31/17) 05/19/13 DENIES ALLERGY cephalexin (Unverified Adverse Reaction, Intermediate, NAUSEA, 07/31/17) Reported Meds & Prescriptions Reported Meds & Active Scripts Active Reported Nexium 24 HR (Esomeprazole DR) 20 Mg Capdr 20 Mg PO DAILY Review of Systems Except as stated in HPI: all other systems reviewed are Neg Physical Exam Narrative GENERAL: 77yo F not in distress. SKIN: Focused skin assessment warm/dry. HEAD: Atraumatic. Normocephalic. CARDIOVASCULAR: Regular rate and rhythm. No murmur appreciated. RESPIRATORY: No accessory muscle use. Clear to auscultation. Breath sounds equal bilaterally. GASTROINTESTINAL: Abdomen soft, +TTP epigastric region. +Left lower abdominal ttp. No rebound tenderness or guarding. MUSCULOSKELETAL: No obvious deformities. No clubbing. No cyanosis. No edema. NEUROLOGICAL: Awake and alert. No obvious cranial nerve deficits. Motor grossly within normal limits. Normal speech. PSYCHIATRIC: Appropriate mood and affect; insight and judgment normal. Data Data Last Documented VS Vital Signs Date Time Temp Pulse Resp B/P (MAP) Pulse Ox O2 Delivery O2 Flow Rate FiO2 07/31/17 17:37 16 07/31/17 17:30 82 140/67 (91) 97 Room Air 07/31/17 16:24 97.4 Orders Orders Complete Blood Count With Diff (07/31/17 16:42) Comprehensive Metabolic Panel (07/31/17 16:42) Lipase (07/31/17 16:42) Prothrombin Time / Inr (Pt) (07/31/17 16:42) Act Partial Throm Time (Ptt) (07/31/17 16:42) Urinalysis - C+S If Indicated (07/31/17 16:42) Electrocardiogram (07/31/17 16:42) Ct Abd/Pel W/O Iv Contrast (07/31/17 ) Ondansetron Inj (Zofran Inj) (07/31/17 17:00) Morphine Inj (Morphine Inj) (07/31/17 17:00) Sodium Chlor 0.9% 1000 Ml Inj (Ns 1000 M (07/31/17 18:30) Morphine Inj (Morphine Inj) (07/31/17 18:30) NPO (07/31/17 18:21) Consult Gastroenterology (07/31/17 ) Potassium, Serum (K) (07/31/17 18:31) (Hub Use Only)Inp Phy Cons/Ref (07/31/17 ) Admit Order (Ed Use Only) (07/31/17 18:47) Labs Laboratory Tests Test 07/31/17 17:25 White Blood Count 6.5 TH/MM3 Red Blood Count 4.57 MIL/MM3 Hemoglobin 15.1 GM/DL Hematocrit 46.9 % Mean Corpuscular Volume 102.6 FL Mean Corpuscular Hemoglobin 33.1 PG Mean Corpuscular Hemoglobin Concent 32.2 % Red Cell Distribution Width 14.4 % Platelet Count 161 TH/MM3 Mean Platelet Volume 8.4 FL Neutrophils (%) (Auto) 83.6 % Lymphocytes (%) (Auto) 13.1 % Monocytes (%) (Auto) 2.4 % Eosinophils (%) (Auto) 0.1 % Basophils (%) (Auto) 0.8 % Neutrophils # (Auto) 5.3 TH/MM3 Lymphocytes # (Auto) 0.9 TH/MM3 Monocytes # (Auto) 0.2 TH/MM3 Eosinophils # (Auto) 0.0 TH/MM3 Basophils # (Auto) 0.1 TH/MM3 CBC Comment DIFF FINAL Differential Comment Prothrombin Time 11.8 SEC Prothromb Time International Ratio 1.2 RATIO Activated Partial Thromboplast Time 27.3 SEC Blood Urea Nitrogen 7 MG/DL Creatinine 0.70 MG/DL Random Glucose 102 MG/DL Total Protein 8.5 GM/DL Albumin 3.4 GM/DL Calcium Level 8.7 MG/DL Alkaline Phosphatase 199 U/L Aspartate Amino Transf (AST/SGOT) 304 U/L Alanine Aminotransferase (ALT/SGPT) 90 U/L Total Bilirubin 2.0 MG/DL Sodium Level 134 MEQ/L Potassium Level 5.8 MEQ/L Chloride Level 102 MEQ/L Carbon Dioxide Level 11.5 MEQ/L Anion Gap 21 MEQ/L Estimat Glomerular Filtration Rate 81 ML/MIN Lipase 8640 U/L [facility] Medical Decision Making Medical Screen Exam Complete: Yes Emergency Medical Condition: Yes Interpretation(s) EKG: NSR 76bpm. Normal axis. No ST segment elevation or depression. Differential Diagnosis Diverticulitis vs. gastroenteritis vs. pancreatitis vs. peptic ulcer disease. gastritis vs. UTI Narrative Course 77yo F with abdominal pain, vomiting for 2 days. Labs reviewed, no leukocytosis. Potassium is elevated at 5.8. Nurse informed me that the blood draw was against a valve and it was a slow draw. Even though it does not say it is hemolyzed, pt is vomiting and hasnt kept anything down so will repeat potassium level and treat if it is still elevated. No signs of hyperkalemia on EKG. CO2 low at 11.5. Pt given NS IVF. LFTs, bilirubin elevated. Lipase elevated at 8640. UA pending. CT a/p showed abnormal appearance of peripancreatic tissue with induration of the fat and poor delineation of head and body. Findings suggest pancreatitis. Pt given zofran and morphine and pain is better but still there. Will give more morphine. Pt said she drinks socially, a few times a week. Said she had cholecystectomy years ago. Had knee replacement last year and was on xarelto prophylactically but has not taken it since last year. I discussed case with Dr. Cruz and accepted to her service. I was informed by my nurse that the repeat potassium was clogged and they had to redraw it. blood bank laboratory technologist came and was finally able to redraw it. Pt is currently leaving the ED and she will not be here in the ED when her repeat potassium comes back so Dr. Roman paged to inform her of this and to treat hyperkalemia if repeat is still elevated. I discussed with Dr. Abel Ventura' s PA and she will follow up on the repeat potassium level and treat accordingly. Repeat K is 4.2. No treatment needed. Diagnosis Primary Impression: Acute pancreatitis Qualified Codes: K85.90 - Acute pancreatitis without necrosis or infection, unspecified Admitting Information Admitting Physician Requests: Admit Fang Red DO Jul 31, 2017 16:47
[2017-07-31] MEDS ORDERED: MORPHINE SULFATE 2 MG/ML INJ IV PUSH ONE ×2 (17:00→18:30)
[2017-07-31] MEDS ORDERED: ONDANSETRON HCL 4 MG/2 ML VIAL IV PUSH ONE (17:00)
[2017-07-31 17:30] VITALS: BP 140/67; PULSE 82; RESP 16; O2SAT 97
[2017-07-31 17:36] LABS: AUTOMATED NEUTROPHIL # 5.3 TH/MM3 (1.8-7.7); BASOPHIL # 0.1 TH/MM3 (0-0.2); BASOPHIL % 0.8 % (0.0-2.0); EOSINOPHIL % 0.1 % (0.0-4.0); HEMATOCRIT 46.9 % (35.0-46.0); HEMOGLOBIN 15.1 GM/DL (11.6-15.3); LYMPH % 13.1 % (9.0-44.0); LYMPHOCYTE # 0.9 TH/MM3 (1.0-4.8); MEAN CELL VOLUME 102.6 FL (80.0-100.0); MEAN CORPUSCULAR HEMOGLOBIN 33.1 PG (27.0-34.0); MEAN CORPUSCULAR HGB CONC 32.2 % (32.0-36.0); MEAN PLATELET VOLUME 8.4 FL (7.0-11.0); MONO % 2.4 % (0.0-8.0); MONOCYTE # 0.2 TH/MM3 (0-0.9); NEUT % 83.6 % (16.0-70.0); PLATELET COUNT 161 TH/MM3 (150-450); RED BLOOD COUNT 4.57 MIL/MM3 (4.00-5.30); RED CELL DISTRIBUTION WIDTH 14.4 % (11.6-17.2); WHITE BLOOD COUNT 6.5 TH/MM3 (4.0-11.0)
[2017-07-31 17:47] LABS: CHLORIDE 102 MEQ/L (98-107); SODIUM (NA) 134 MEQ/L (136-145)
[2017-07-31 17:52] LABS: ALBUMIN 3.4 GM/DL (3.4-5.0); BICARBONATE 11.5 MEQ/L (21.0-32.0); BLOOD UREA NITROGEN 7 MG/DL (7-18); CALCIUM 8.7 MG/DL (8.5-10.1); GLUCOSE,RANDOM 102 MG/DL (74-106); INTERNATIONAL NORMALIZED RATIO 1.2 RATIO; PROTHROMBIN TIME - PATIENT 11.8 SEC (9.8-11.6)
--- NOTE | 2017-07-31 17:54 | RADRPT ---
EXAM DATE/TIME: 07/31/2017 17:07 [facility] COMPARISON: No previous studies available for comparison. INDICATIONS : Vomiting, and left sided abdominal pain. ORAL CONTRAST: No oral contrast ingested. RADIATION DOSE: 12.84 CTDIvol (mGy) MEDICAL HISTORY : Gastroesophageal reflux disease. Hiatal hernia. Skin cancer. SURGICAL HISTORY : Cholecystectomy. Hysterectomy. section. ENCOUNTER: Initial ACUITY: 3 days PAIN SCALE: 0/10 LOCATION: Left pelvis abdomen TECHNIQUE: Volumetric scanning of the abdomen and pelvis was performed. Using automated exposure control and ad justment of the mA and/or kV according to patient size, radiation dose was kept as low as reasonably achievable to obtain optimal diagnostic quality images. DICOM format image data is available electro nically for review and comparison. FINDINGS: LOWER LUNGS: The visualized lower lungs are clear. Moderate-sized hiatus hernia containing the fundus of the stom ach. LIVER: Diffuse fatty change throughout the liver. No biliary ductal dilatation. Hemoclips in the brianna fro m prior cholecystectomy. SPLEEN: Normal size without lesion. PANCREAS: There is induration of the fat about the pancreas and in the anterior pararenal space. No focal flui d collections seen. No focal cystic areas in the pancreas. The pancreatic duct is not identified. There is poor delineation of the margins of the head and distal body stop KIDNEYS: Normal in size and shape. There is no mass, stone, or hydronephrosis. ADRENAL GLANDS: Within normal limits. VASCULAR: There is no aortic aneurysm. BOWEL/MESENTERY: No dilated loops of small large bowel. Diverticula are seen scattered throughout the entire colon wi th greatest concentration in the sigmoid colon; no radiographic evidence of diverticulitis. ABDOMINAL WALL: Within normal limits. RETROPERITONEUM: There is no lymphadenopathy. BLADDER: No wall thickening or mass. REPRODUCTIVE: Hysterectomy. In the left adnexal region, there is a 3.7 x 2.3 cm smooth margin oval low dense area with mean CT density 7 Hounsfield units. This could be ovarian in origin. INGUINAL: There is no lymphadenopathy or hernia. MUSCULOSKELETAL: Within normal limits for patient age. CONCLUSION: 1. Abnormal appearance the peripancreatic tissues with induration of the fat and poor delineation of the head and body. The findings suggest pancreatitis. No focal cystic areas seen and no calcificati ons. 2. Diffuse fatty change in the liver. 3. Diverticulosis of the colon without radiographic evidence of diverticulitis. 4. 3.7 cm low-density lesion in the left adnexal region of uncertain significance. This could be rel ated to the ovary. Chapincito Abbais MD on July 31, 2017 at 17:47 Board Certified Radiologist. This report was verified electronically.
[2017-07-31 17:55] LABS: ALT (GPT) 90 U/L (10-53); AST (GOT) 304 U/L (15-37); GLOMERULAR FILTRATION RATE 81 ML/MIN (>89)
[2017-07-31 17:57] LABS: TOTAL PROTEIN 8.5 GM/DL (6.4-8.2)
[2017-07-31 17:58] LABS: ALKALINE PHOSPHATASE 199 U/L (45-117)
[2017-07-31] MEDS ORDERED: SODIUM CHLOR 0.9% 1000 ML INJ 1,000 ML IV ONE (18:30)
[2017-07-31 18:58] VITALS: BP 135/70; PULSE 92; RESP 16; O2SAT 94
[2017-07-31] MEDS ORDERED: LORazepam 2 MG TAB PO PRN (19:00)
[2017-07-31] MEDS ORDERED: MORPHINE SULFATE 8 MG/ML INJ IV PUSH PRN (19:00)
[2017-07-31] MEDS ORDERED: LORazepam 2 MG/ML VIAL IV PUSH PRN ×4 (19:00)
[2017-07-31] MEDS ORDERED: LORazepam 1 MG TAB PO PRN (19:00)
[2017-07-31] MEDS ORDERED: FLUMAZENIL 0.5 MG/5 ML VIAL IV PUSH PRN (19:00)
[2017-07-31] MEDS ORDERED: SODIUM CHLORIDE 0.9% FLUSH 10 ML FLUSH IV FLUSH PRN (19:00)
[2017-07-31] MEDS: PANTOPRAZOLE SOD 40 MG DELAYED RELEASE TAB PO SCH (20:00)
[2017-07-31] MEDS ORDERED: SODIUM POLYSTYRENE SULFONATE SUSP 15 GM/60 ML CUP PO ONE (20:00)
[2017-07-31] MEDS ORDERED: KETOROLAC TROMETHAMINE 30 MG/ML (IVP) VIAL IVP PRN (20:00)
[2017-07-31] MEDS: ENOXAPARIN SODIUM 40 MG/0.4 ML SYRINGE SQ SCH (20:01)
[2017-07-31 20:48] VITALS: BP 137/71; PULSE 89; RESP 18; O2SAT 95
[2017-07-31 21:15] VITALS: BP 161/74; PULSE 88; RESP 18; TEMP 96.6; O2SAT 95
[2017-07-31] MEDS: SODIUM CHLORIDE 0.9% FLUSH 10 ML FLUSH IV FLUSH SCH (22:39)
[2017-08-01] VITALS: BP 127/63; PULSE 98; RESP 16; TEMP 97.5; O2SAT 97
[2017-08-01 01:21] LABS: BLOOD, URINE MOD (NEG); GLUCOSE,URINE NEG (NEG); KETONE, URINE 80 OR GREATER mg/dL (NEG); NITRITE,URINE NEG (NEG); URINE LEUKOCYTE ESTERASE NEG (NEG)
[2017-08-01 01:34] LABS: BILIRUBIN, URINE NEG (NEG); URINE COLOR YELLOW (YELLW/STRAW)
[2017-08-01 01:36] LABS: MUCUS URINE OCC /lpf (OCC)
[2017-08-01 01:37] LABS: BACTERIA, URINE OCC /hpf; SQUAMOUS EPITHELIAL CELL URINE 0-5 /hpf (0-5)
[2017-08-01 05:19] LABS: AUTOMATED NEUTROPHIL # 7.5 TH/MM3 (1.8-7.7); BASOPHIL % 0.4 % (0.0-2.0); HEMATOCRIT 42.5 % (35.0-46.0); HEMOGLOBIN 14.3 GM/DL (11.6-15.3); LYMPH % 17.5 % (9.0-44.0); LYMPHOCYTE # 1.7 TH/MM3 (1.0-4.8); MEAN CELL VOLUME 102.2 FL (80.0-100.0); MEAN CORPUSCULAR HEMOGLOBIN 34.3 PG (27.0-34.0); MEAN CORPUSCULAR HGB CONC 33.6 % (32.0-36.0); MEAN PLATELET VOLUME 8.4 FL (7.0-11.0); MONO % 4.8 % (0.0-8.0); MONOCYTE # 0.5 TH/MM3 (0-0.9); NEUT % 77.3 % (16.0-70.0); PLATELET COUNT 162 TH/MM3 (150-450); RED BLOOD COUNT 4.16 MIL/MM3 (4.00-5.30); RED CELL DISTRIBUTION WIDTH 15.1 % (11.6-17.2); WHITE BLOOD COUNT 9.7 TH/MM3 (4.0-11.0)
[2017-08-01 07:37] LABS: BICARBONATE 9.7 MEQ/L (21.0-32.0); CALCIUM 8.6 MG/DL (8.5-10.1)
[2017-08-01 07:41] LABS: CREATININE 0.75 MG/DL (0.50-1.00)
[2017-08-01] MEDS: ONDANSETRON HCL 4 MG/2 ML VIAL IV PUSH PRN (08:21)
[2017-08-01] MEDS: SODIUM CHLORIDE 0.9% FLUSH 10 ML FLUSH IV FLUSH SCH ×2 (08:21→20:46)
[2017-08-01] MEDS: PANTOPRAZOLE SOD 40 MG DELAYED RELEASE TAB PO SCH (08:21)
[2017-08-01 09:13] VITALS: BP 150/82; PULSE 96; RESP 16; TEMP 96.8; O2SAT 97
[2017-08-01] MEDS ORDERED: INSULIN HUMAN REGULAR 1,000 UNITS/10 ML VIAL SQ ONE (10:15)
[2017-08-01] MEDS ORDERED: DEXTROSE 50% IN WATER 50 ML SYRINGE IV PUSH ONE (10:15)
[2017-08-01] MEDS: SODIUM CHLOR 0.9% 1000 ML INJ 1,000 ML IV SCH ×2 (12:30→20:46)
--- NOTE | 2017-08-01 12:30 | HHI.HP ---
[facility] Primary Care Physician Non-Staff Admission Diagnosis Acute pancreatitis Diagnoses: Chief Complaint: anorexia x 4 days Travel History International Travel<30 Days: No Contact w/Intl Traveler <30 Da: No Traveled to Known Affected Are: No History of Present Illness patient is a 77 female with minimal Past medical history who complains of 4 days of nausea and severe diffuse abd pain improved by nausea and Morphine. She had no fever or chills. Now hematemesis or hematochezia She had elevated lipase and ct confirming clinical suspicion of pancreatitis and is therefore admitted. Review of Systems Constitutional: DENIES: Diaphoretic episodes, Fatigue, Fever, Weight gain, Weight loss, Chills, Dizziness, Change in appetite, Night Sweats Endocrine: DENIES: Abnorml menstrual pattern, Heat/cold intolerance, Polydipsia , Polyuria, Polyphagia Eyes: DENIES: Blurred vision, Diplopia, Eye inflammation, Eye pain, Vision loss , Photosensitivity, Double Vision Ears, nose, mouth, throat: DENIES: Tinnitus, Hearing loss, Vertigo, Nasal discharge, Oral lesions, Throat pain, Hoarseness, Ear Pain, Running Nose, Epistaxis, Sinus Pain, Toothache, Odynophagia Respiratory: DENIES: Apneas, Cough, Snoring, Wheezing, Hemoptysis, Sputum production, Shortness of breath Cardiovascular: DENIES: Chest pain, Palpitations, Syncope, Dyspnea on Exertion , PND, Lower Extremity Edema, Orthopnea, Claudication Gastrointestinal: COMPLAINS OF: Abdominal pain, Nausea, Vomiting, DENIES: Black stools, Bloody stools, Constipation, Diarrhea, Difficulty Swallowing, Anorexia Genitourinary: DENIES: Abnormal vaginal bleeding, Dysmenorrhea, Dyspareunia, Sexual dysfunction, Urinary frequency, Urinary incontinence, Urgency, Hematuria , Dysuria, Nocturia, Vaginal discharge Musculoskeletal: DENIES: Joint pain, Muscle aches, Stiffness, Joint Swelling, Back pain, Neck pain Integumentary: DENIES: Abnormal pigmentation, Pruritus, Rash, Nail changes, Breast masses, Breast skin changes, Nipple discharge Hematologic/lymphatic: DENIES: Bruising, Lymphadenopathy Immunologic/allergic: DENIES: Eczema, Urticaria Neurologic: DENIES: Abnormal gait, Headache, Localized weakness, Paresthesias, Seizures, Speech Problems, Tremor, Poor Balance Psychiatric: DENIES: Anxiety, Confusion, Mood changes, Depression, Hallucinations, Agitation, Suicidal Ideation, Homicidal Ideation, Delusions Past Family Social History Past Medical History Denies Past Surgical History c/s x3, MORIAH Appy Breast Bx R Knee Reported Medications Reviewed in the EMR Allergies: Coded Allergies: iodine (Unverified Adverse Reaction, Severe, FLUSH, 07/31/17) 05/19/13 DENIES ALLERGY potassium iodide (Unverified Adverse Reaction, Severe, FLUSH, 07/31/17) 05/19/13 DENIES ALLERGY povidone-iodine (Unverified Adverse Reaction, Severe, FLUSH, 07/31/17) 05/19/13 DENIES ALLERGY sodium iodide (Unverified Adverse Reaction, Severe, FLUSH, 07/31/17) 05/19/13 DENIES ALLERGY sodium iodide (Unverified Adverse Reaction, Severe, FLUSH, 07/31/17) 05/19/13 DENIES ALLERGY cephalexin (Unverified Adverse Reaction, Intermediate, NAUSEA, 07/31/17) Active Ordered Medications Reviewed in the EMR Family History mother had a Brain aneurysm Father had parkinson's and CHF Brother with Parkinson's and CHF Sister at 43 with a CVA Social History No tobacco occ etoh, one dui 8 years ago ( of pancreatic CA) golfs 3x week Physical Exam Vital Signs Vital Signs Date Time Temp Pulse Resp B/P (MAP) Pulse Ox O2 Delivery O2 Flow Rate FiO2 08/01/17 09:13 96.8 96 16 150/82 (104) 97 08/01/17 00:00 97.5 98 16 127/63 (84) 97 07/31/17 21:15 96.6 88 18 161/74 (103) 95 07/31/17 20:54 07/31/17 20:48 89 18 137/71 (93) 95 Room Air 07/31/17 19:02 16 07/31/17 18:58 92 16 135/70 (91) 94 Room Air 07/31/17 17:37 16 07/31/17 17:30 82 16 140/67 (91) 97 Room Air 07/31/17 16:24 97.4 89 19 131/74 (93 96 Physical Exam GENERAL: This is a well-nourished, well-developed patient, in no apparent distress. SKIN: No rashes, ecchymoses or lesions. Cool and dry. HEAD: Atraumatic. Normocephalic. No temporal or scalp tenderness. EYES: Pupils equal round and reactive. Extraocular motions intact. No scleral icterus. No injection or drainage. ENT: Nose without bleeding, purulent drainage or septal hematoma. Throat without erythema, tonsillar hypertrophy or exudate. Uvula midline. Airway patent. NECK: Trachea midline. No JVD or lymphadenopathy. Supple, nontender, no meningeal signs. CARDIOVASCULAR: Regular rate and rhythm without murmurs, gallops, or rubs. RESPIRATORY: Clear to auscultation. Breath sounds equal bilaterally. No wheezes , rales, or rhonchi. GASTROINTESTINAL: Abdomen soft, diffusely tender, nondistended. No hepato- splenomegaly, or palpable masses. No guarding. MUSCULOSKELETAL: Extremities without clubbing, cyanosis, or edema. No joint tenderness, effusion, or edema noted. No calf tenderness. Negative Homans sign bilaterally. NEUROLOGICAL: Awake and alert. Cranial nerves II through XII intact. Motor and sensory grossly within normal limits. Five out of 5 muscle strength in all muscle groups. Normal speech. Laboratory Laboratory Tests Test 07/31/17 17:25 07/31/17 20:40 08/01/17 01:16 08/01/17 04:49 White Blood Count 6.5 9.7 Red Blood Count 4.57 4.16 Hemoglobin 15.1 14.3 Hematocrit 46.9 42.5 Mean Corpuscular Volume 102.6 102.2 Mean Corpuscular Hemoglobin 33.1 34.3 Mean Corpuscular Hemoglobin Concent 32.2 33.6 Red Cell Distribution Width 14.4 15.1 Platelet Count 161 162 Mean Platelet Volume 8.4 8.4 Neutrophils (%) (Auto) 83.6 77.3 Lymphocytes (%) (Auto) 13.1 17.5 Monocytes (%) (Auto) 2.4 4.8 Eosinophils (%) (Auto) 0.1 0.0 Basophils (%) (Auto) 0.8 0.4 Neutrophils # (Auto) 5.3 7.5 Lymphocytes # (Auto) 0.9 1.7 Monocytes # (Auto) 0.2 0.5 Eosinophils # (Auto) 0.0 0.0 Basophils # (Auto) 0.1 0.0 CBC Comment DIFF FINAL DIFF FINAL Differential Comment Prothrombin Time 11.8 Prothromb Time International Ratio 1.2 Activated Partial Thromboplast Time 27.3 Blood Urea Nitrogen 7 9 Creatinine 0.70 0.75 Random Glucose 102 81 Total Protein 8.5 Albumin 3.4 Calcium Level 8.7 8.6 Alkaline Phosphatase 199 Aspartate Amino Transf (AST/SGOT) 304 Alanine Aminotransferase (ALT/SGPT) 90 Total Bilirubin 2.0 Sodium Level 134 134 Potassium Level 5.8 4.2 5.0 Chloride Level 102 106 Carbon Dioxide Level 11.5 9.7 Anion Gap 21 18 Estimat Glomerular Filtration Rate 81 75 Lipase 8640 Ethyl Alcohol Level LESS THAN 3 Urine Color YELLOW Urine Turbidity CLEAR Urine pH 6.0 Urine Specific [place] 1.018 Urine Protein 100 Urine Glucose (UA) NEG Urine Ketones 80 OR GREATER Urine Occult Blood MOD Urine Nitrite NEG Urine Bilirubin NEG Urine Leukocyte Esterase NEG Urine RBC 10-14 Urine WBC 20-24 Urine Squamous Epithelial Cells 0-5 Urine Bacteria OCC Urine Mucus OCC Microscopic Urinalysis Comment CULTURE INDICATED Date/Time Source Procedure Growth Status 08/01/17 01:16 Urine Clean Catch Urine Culture Pending Received Result Diagram: 08/01/17 0449 08/01/17 0449 Imaging Last Impressions Abdomen/Pelvis CT 07/31/17 0000 Signed Impressions: Service Date/Time: Monday, July 31, 2017 17:07 - CONCLUSION: 1. Abnormal appearance the peripancreatic tissues with induration of the fat and poor delineation of the head and body. The findings suggest pancreatitis. No focal cystic areas seen and no calcifications. 2. Diffuse fatty change in the liver. 3. Diverticulosis of the colon without radiographic evidence of diverticulitis. 4. 3.7 cm low-density lesion in the left adnexal region of uncertain significance. This could be related to the ovary. MD Yuriy Carroll VTE Risk Assessment Caprini VTE Risk Assessment: Mod/High Risk (score >= 2) Caprini Risk Assessment Model Point Value = 1 Point Value = 2 Point Value = 3 Point Value = 5 Age 41-60 Minor surgery BMI > 25 kg/m2 Swollen legs Varicose veins or History of unexplained or recurrent spontaneous Oral contraceptives or hormone replacement Sepsis (< 1 month) Serious lung disease, including pneumonia (< 1 month) Abnormal pulmonary function Acute myocardial infarction Congestive heart failure (< 1 month) History of inflammatory bowel disease Medical patient at bed rest Age 61-74 Arthroscopic surgery Major open surgery (> 45 min) Laparoscopic surgery (> 45 min) Malignancy Confined to bed (> 72 hours) Immobilizing plaster cast Central venous access Age >= 75 History of VTE Family history of VTE Factor V Leiden Prothrombin [id number] Lupus anticoagulant Anticardiolipin antibodies Elevated serum homocysteine Heparin-induced thrombocytopenia Other congenital or acquired thrombophilia Stroke (< 1 month) Elective arthroplasty Hip, pelvis, or leg fracture Acute spinal cord injury (< 1 month) Prophylaxis Regimen Total Risk Factor Score Risk Level Prophylaxis Regimen 0-1 Low Early ambulation 2 Moderate Order ONE of the following: *Sequential Compression Device (SCD) *Heparin 5000 units SQ BID 3-4 Higher Order ONE of the following medications: *Heparin 5000 units SQ TID *Enoxaparin/Lovenox 40 mg SQ daily (WT < 150 kg, CrCl > 30 mL/min) *Enoxaparin/Lovenox 30 mg SQ daily (WT < 150 kg, CrCl > 10-29 mL/min) *Enoxaparin/Lovenox 30 mg SQ BID (WT < 150 kg, CrCl > 30 mL/min) AND/OR *Sequential Compression Device (SCD) 5 or more Highest Order ONE of the following medications: *Heparin 5000 units SQ TID (Preferred with Epidurals) *Enoxaparin/Lovenox 40 mg SQ daily (WT < 150 kg, CrCl > 30 mL/min) *Enoxaparin/Lovenox 30 mg SQ daily (WT < 150 kg, CrCl > 10-29 mL/min) *Enoxaparin/Lovenox 30 mg SQ BID (WT < 150 kg, CrCl > 30 mL/min) AND *Sequential Compression Device (SCD) Assessment and Plan Problem List: (1) Acute pancreatitis ICD Code: K85.90 - Acute pancreatitis without necrosis or infection, unspecified Status: Acute Plan: etiology unclear MRCP pending does not appear to be related to ETOH IV narcotics for pain, clear liquids, IVF GI consulted Physician Certification 2 Midnight Certification Type: Admission for Inpatient Services Order for Inpatient Services The services are ordered in accordance with Medicare regulations or non- Medicare payer requirements, as applicable. In the case of services not specified as inpatient-only, they are appropriately provided as inpatient services in accordance with the 2-midnight benchmark. Estimated LOS (days): 4 4 days is the estimated time the patient will need to remain in the hospital, assuming treatment plan goals are met and no additional complications. Post-Hospital Plan: Home Problem Qualifiers (1) Acute pancreatitis: Qualified Codes: K85.90 - Acute pancreatitis without necrosis or infection, unspecified Joan Cruz MD Aug 01, 2017 12:30
--- NOTE | 2017-08-01 13:50 | RADRPT ---
EXAM DATE/TIME: 08/01/2017 12:15 [place] COMPARISON: No previous studies available for comparison. INDICATIONS : Abdominal pain. Nausea and vomiting. MEDICAL HISTORY : Hiatal hernia. SURGICAL HISTORY : Hysterectomy. Cholecystectomy. section. Right knee replacement, cataracts and left breast bi opsy. ENCOUNTER: Initial ACUITY: 1 week PAIN SCORE: 6/10 LOCATION: Right upper quadrant TECHNIQUE: Multiplanar, multisequence magnetic resonance imaging of the abdomen was performed. High-resolution 3D dataset was utilized to reconstruct maximum-intensity projection (MIP) images. FINDINGS: INTRAHEPATIC BILE DUCTS: Within normal limits. No significant anatomical variant is present. EXTRAHEPATIC BILE DUCTS: The common bile duct measures 7 mm No stone or filling defect is identified. GALLBLADDER: Cholecystectomy LIVER: Normal size and signal intensity. No concerning liver lesion is identified on this non-contrast exam. PANCREAS: The main pancreatic duct is normal in size. There is no significant anatomical variant. Signal inte nsity is within normal limits. No mass is visualized on this non-contrast exam. OTHER: Moderate size hiatus hernia with intrathoracic location to the fundus measuring 6.4 cm in width. CONCLUSION: No dilation of the intra-articular hepatic biliary ducts. No filling defects seen. The pancreatic d uct is normal in dimension.. Chapincito Abbasi MD on August 01, 2017 at 13:39 Board Certified Radiologist. This report was verified electronically.
--- NOTE | 2017-08-01 15:35 | EKG ---
Date Performed: 07/31/2017 Time Performed: 16:49:48 PTAGE: 77 years EKG: Sinus rhythm NORMAL ECG PREVIOUS TRACING : 03/24/2013 12.33 DOCTOR: Kumar Wylie Interpretating Date/Time 08/01/2017 15:34:08
[2017-08-01 17:12] VITALS: BP 119/84; PULSE 91; RESP 18; TEMP 98; O2SAT 97
--- NOTE | 2017-08-01 19:47 | PD.CONS ---
HPI History of Present Illness This is a 77 year old female who was admitted to the hospital today with symptoms of upper abdominal pain associated with nausea and vomiting since the last 4 days. She denied any history of heartburn dysphagia constipation diarrhea hematemesis melena hematochezia jaundice pruritus ascites edema anorexia or weight loss. PFSH Past Medical History She gives history chronic osteoarthritis. Past Surgical History c/s x3, MORIAH Appy Breast Bx R Knee replacement Coded Allergies: iodine (Unverified Adverse Reaction, Severe, FLUSH, 07/31/17) 05/19/13 DENIES ALLERGY potassium iodide (Unverified Adverse Reaction, Severe, FLUSH, 07/31/17) 05/19/13 DENIES ALLERGY povidone-iodine (Unverified Adverse Reaction, Severe, FLUSH, 07/31/17) 05/19/13 DENIES ALLERGY sodium iodide (Unverified Adverse Reaction, Severe, FLUSH, 07/31/17) 05/19/13 DENIES ALLERGY sodium iodide (Unverified Adverse Reaction, Severe, FLUSH, 07/31/17) 05/19/13 DENIES ALLERGY cephalexin (Unverified Adverse Reaction, Intermediate, NAUSEA, 07/31/17) Medications Motrin, Nexium Family History mother had a Brain aneurysm Father had parkinson's and CHF Brother with Parkinson's and CHF Sister at 43 with a CVA No history of colorectal cancer, polyps, pancreatic diseases in the family Social History No tobacco She gives history of consuming alcohol on a regular basis. On the average she drinks 4-5 times a week one dui 8 years ago ( of pancreatic CA) golfs 3x week Review of Systems Gastrointestinal: COMPLAINS OF: Abdominal pain, Nausea, Vomiting, DENIES: Black stools, Bloody stools, Constipation, Diarrhea, Difficulty Swallowing, Anorexia, Odynophagia, Swelling of Abdomen, Heartburn, Hematemesis GI Exam Vitals I&O Vital Signs Date Time Temp Pulse Resp B/P (MAP) Pulse Ox O2 Delivery O2 Flow Rate FiO2 08/01/17 17:12 98.0 91 18 119/84 (96) 97 08/01/17 09:13 96.8 96 16 150/82 (104) 97 08/01/17 00:00 97.5 98 16 127/63 (84) 97 07/31/17 21:15 96.6 88 18 161/74 (103) 95 07/31/17 20:54 07/31/17 20:48 89 18 137/71 (93) 95 Room Air I/O 07/31/17 07/31/17 07/31/17 08/01/17 08/01/17 08/01/17 07:00 15:00 23:00 07:00 15:00 23:00 Intake Total 240 ml 400 ml Balance 240 ml 400 ml Intake Oral 240 ml 400 ml # Voids 1 3 3 # Bowel Movements [address] scan of the abdomen revealed abnormal pancreas and peripancreatic tissue. Scan detected induration of fat and poor delineation of the head and body of the pancreas. MRCP showed no evidence of intra-or extra hepatic bile duct dilation Laboratory Test 07/31/17 20:40 08/01/17 01:16 08/01/17 04:49 Potassium Level 4.2 MEQ/L 5.0 MEQ/L Ethyl Alcohol Level LESS THAN 3 MG/DL Urine Color YELLOW Urine Turbidity CLEAR Urine pH 6.0 Urine Specific [place] 1.018 Urine Protein 100 mg/dL Urine Glucose (UA) NEG mg/dL Urine Ketones 80 OR GREATER mg/dL Urine Occult Blood MOD Urine Nitrite NEG Urine Bilirubin NEG Urine Leukocyte Esterase NEG Urine RBC 10-14 /hpf Urine WBC 20-24 /hpf Urine Squamous Epithelial Cells 0-5 /hpf Urine Bacteria OCC /hpf Urine Mucus OCC /lpf Microscopic Urinalysis Comment CULTURE INDICATED White Blood Count 9.7 TH/MM3 Red Blood Count 4.16 MIL/MM3 Hemoglobin 14.3 GM/DL Hematocrit 42.5 % Mean Corpuscular Volume 102.2 FL Mean Corpuscular Hemoglobin 34.3 PG Mean Corpuscular Hemoglobin Concent 33.6 % Red Cell Distribution Width 15.1 % Platelet Count 162 TH/MM3 Mean Platelet Volume 8.4 FL Neutrophils (%) (Auto) 77.3 % Lymphocytes (%) (Auto) 17.5 % Monocytes (%) (Auto) 4.8 % Eosinophils (%) (Auto) 0.0 % Basophils (%) (Auto) 0.4 % Neutrophils # (Auto) 7.5 TH/MM3 Lymphocytes # (Auto) 1.7 TH/MM3 Monocytes # (Auto) 0.5 TH/MM3 Eosinophils # (Auto) 0.0 TH/MM3 Basophils # (Auto) 0.0 TH/MM3 CBC Comment DIFF FINAL Differential Comment Blood Urea Nitrogen 9 MG/DL Creatinine 0.75 MG/DL Random Glucose 81 MG/DL Calcium Level 8.6 MG/DL Sodium Level 134 MEQ/L Chloride Level 106 MEQ/L Carbon Dioxide Level 9.7 MEQ/L Anion Gap 18 MEQ/L Estimat Glomerular Filtration Rate 75 ML/MIN Date/Time Source Procedure Growth Status 08/01/17 01:16 Urine Clean Catch Urine Culture Pending Received Serum lipase 8640. Bilirubin 2.0 alkaline phosphatase 199 AST 304 ALT 90 Physical Examination HEENT: Pupils round and reactive to light; normocephalic; atraumatic; no jaundice. Throat is clear. Mild jaundice NECK: Neck is supple, no JVD, no lymphadenopathy. CHEST: Chest is clear to auscultation and percussion. CARDIAC: Regular rate and rhythm with no murmur gallop or rubs. ABDOMEN: Abdomen tender mild guarding mainly in the upper abdomen. Ill-defined mass felt in the epigastrium consistent with pancreatic phlegmon. Liver spleen not palpable no ascites bowel sounds sluggish EXTREMITIES: No clubbing, cyanosis, or edema. SKIN: Normal; no rash; no jaundice. WAREHOUSE ORDER PICKER: No focal deficits; alert and oriented times three. Assessment and Plan Assessment: (1) Abnormal liver enzymes ICD Codes: R74.8 - Abnormal levels of other serum enzymes (2) Alcoholic pancreatitis ICD Codes: K85.20 - Alcohol induced acute pancreatitis without necrosis or infection Plan 1. Patient's likely has acute on chronic alcoholic pancreatitis. Possibility of underlying hyper triglyceridemia autoimmune pancreatitis and pancreatic cancer. Recommend labs of further evaluation of underlying cause for pancreatitis. CA 199, lipid panel, IgG4, 2. Abnormal liver panel likely due to alcoholic liver disease. Possibility of underlying autoimmune hepatitis. Left to further evaluation include CT, ASMA, AMA. 3. Continue p.o. clear fluids and IV fluids 4. Monitor labs i.e. serum lipase and liver panel Emile Melton MD Aug 01, 2017 19:47
[2017-08-01 20:00] VITALS: BP 136/63; PULSE 89; RESP 20; TEMP 98.6; O2SAT 96
[2017-08-01] MEDS: ENOXAPARIN SODIUM 40 MG/0.4 ML SYRINGE SQ SCH (20:46)
[2017-08-01] MEDS ORDERED: PANTOPRAZOLE SODIUM 40 MG VIAL IV PUSH SCH (21:00)
[2017-08-02] VITALS: BP 134/65; PULSE 90; RESP 20; TEMP 98.7; O2SAT 96
[2017-08-02 06:48] LABS: AUTOMATED NEUTROPHIL # 6.3 TH/MM3 (1.8-7.7); BASOPHIL % 0.3 % (0.0-2.0); EOSINOPHIL % 0.3 % (0.0-4.0); HEMATOCRIT 37.2 % (35.0-46.0); HEMOGLOBIN 12.6 GM/DL (11.6-15.3); LYMPH % 19.8 % (9.0-44.0); LYMPHOCYTE # 1.7 TH/MM3 (1.0-4.8); MEAN CELL VOLUME 100.5 FL (80.0-100.0); MEAN CORPUSCULAR HEMOGLOBIN 33.9 PG (27.0-34.0); MEAN CORPUSCULAR HGB CONC 33.7 % (32.0-36.0); MEAN PLATELET VOLUME 8.7 FL (7.0-11.0); MONO % 6.3 % (0.0-8.0); MONOCYTE # 0.5 TH/MM3 (0-0.9); NEUT % 73.3 % (16.0-70.0); PLATELET COUNT 118 TH/MM3 (150-450); RED CELL DISTRIBUTION WIDTH 14.1 % (11.6-17.2); WHITE BLOOD COUNT 8.5 TH/MM3 (4.0-11.0)
[2017-08-02 07:12] LABS: ALBUMIN 2.8 GM/DL (3.4-5.0); ALKALINE PHOSPHATASE 150 U/L (45-117); ALT (GPT) 59 U/L (10-53); AST (GOT) 192 U/L (15-37); BICARBONATE 21.1 MEQ/L (21.0-32.0); BLOOD UREA NITROGEN 9 MG/DL (7-18); CALCIUM 8.7 MG/DL (8.5-10.1); CHLORIDE 106 MEQ/L (98-107); CREATININE 0.61 MG/DL (0.50-1.00); GLOMERULAR FILTRATION RATE 95 ML/MIN (>89); GLUCOSE,RANDOM 94 MG/DL (74-106); SODIUM (NA) 139 MEQ/L (136-145); TOTAL BILIRUBIN ADULT 1.7 MG/DL (0.2-1.0)
[2017-08-02 08:00] VITALS: BP 132/76; PULSE 80; RESP 16; TEMP 97.2; O2SAT 96
[2017-08-02] MEDS: SODIUM CHLORIDE 0.9% FLUSH 10 ML FLUSH IV FLUSH SCH ×2 (09:00→20:37)
[2017-08-02 09:59] LABS: CHOLESTEROL 104 MG/DL (120-200); TRIGLYCERIDES 88 MG/DL (42-150)
[2017-08-02 10:05] LABS: CHOLESTEROL/ HDL RATIO 3.34 RATIO; HDL CHOLESTEROL 31.1 MG/DL (40.0-60.0); LDL CHOLESTEROL 55 MG/DL (0-99)
[2017-08-02] MEDS ORDERED: POTASSIUM CHLORIDE 10 MEQ CONTROLLED RELEASE TAB PO ONE (11:00)
[2017-08-02] MEDS ORDERED: MAGNESIUM SULFATE 1 GM PREMIX 100 ML IV ONE (11:00)
[2017-08-02 11:27] LABS: HEPATITIS A AB IGM NEGATIVE (NEGATIVE); HEPATITIS B CORE AB IGM NEGATIVE (NEGATIVE); HEPATITIS B SURFACE ANTIGEN NEGATIVE (NEGATIVE); HEPATITIS C AB IgG NEGATIVE (NEGATIVE)
[2017-08-02 12:00] VITALS: BP 121/85; PULSE 91; RESP 16; TEMP 97.8; O2SAT 94
--- NOTE | 2017-08-02 13:02 | HHI.PR ---
Subjective Remarks Patient seen and evaluated in follow-up for acute pancreatitis. Apparently due to alcohol issues. Overall improved. Abdominal pain is improved. Patient awake alert ambulatory without difficulty. She would like to try advancing her diet Objective Vitals Vital Signs Date Time Temp Pulse Resp B/P (MAP) Pulse Ox O2 Delivery O2 Flow Rate FiO2 08/02/17 12:00 97.8 91 16 121/85 (97) 94 08/02/17 08:00 97.2 80 16 132/76 (94) 96 08/02/17 00:00 98.7 90 20 134/65 (88) 96 08/01/17 20:00 98.6 89 20 136/63 (87) 96 08/01/17 17:12 98.0 91 18 119/84 (96) 97 I/O 08/01/17 08/01/17 08/01/17 08/02/17 08/02/17 08/02/17 07:00 15:00 23:00 07:00 15:00 23:00 Intake Total 240 ml 820 ml Output Total 400 ml Balance 240 ml 820 ml -400 ml Intake Oral 240 ml 820 ml Output Urine Total 400 ml # Voids 3 5 # Bowel Movements 0 0 Result Diagram: 08/02/17 0600 08/02/17 0600 Imaging Last Impressions Cholangiopancreatography MRI 08/01/17 0000 Signed Impressions: Service Date/Time: Tuesday, August 01, 2017 12:15 - CONCLUSION: No dilation of the intra-articular hepatic biliary ducts. No filling defects seen. The pancreatic duct is normal in dimension.. Chapincito Abbasi MD Abdomen/Pelvis CT 07/31/17 0000 Signed Impressions: Service Date/Time: Monday, July 31, 2017 17:07 - CONCLUSION: 1. Abnormal appearance the peripancreatic tissues with induration of the fat and poor delineation of the head and body. The findings suggest pancreatitis. No focal cystic areas seen and no calcifications. 2. Diffuse fatty change in the liver. 3. Diverticulosis of the colon without radiographic evidence of diverticulitis. 4. 3.7 cm low-density lesion in the left adnexal region of uncertain significance. This could be related to the ovary. Chapincito Abbasi MD Objective Remarks GENERAL: This is a well-nourished, well-developed patient, in no apparent distress. CARDIOVASCULAR: Regular rate and rhythm without murmurs, gallops, or rubs. RESPIRATORY: Clear to auscultation. Breath sounds equal bilaterally. No wheezes , rales, or rhonchi. GASTROINTESTINAL: Abdomen soft, non-tender, nondistended. Normal active bowel sounds MUSCULOSKELETAL: Extremities without clubbing, cyanosis, or edema. NEURO: Alert & Oriented x4 to person, place, time, situation. Moves all ext x4 A/P Problem List: (1) Acute pancreatitis ICD Code: K85.90 - Acute pancreatitis without necrosis or infection, unspecified Status: Acute Plan: Improved symptoms MRCP unremarkable for obstruction, May indeed be related to ETOH IV narcotics for pain, advance diet as tolerated GI consultation appreciated Discharge Planning If patient able to tolerate diet and pain medication by mouth likely discharge home in a.m. Problem Qualifiers (1) Acute pancreatitis: Qualified Codes: K85.90 - Acute pancreatitis without necrosis or infection, unspecified Joan Cruz MD Aug 02, 2017 13:02
[2017-08-02] MEDS: PANTOPRAZOLE SODIUM 40 MG VIAL IV PUSH SCH ×2 (15:14→20:44)
[2017-08-02] MEDS: ACETAMINOPHEN/HYDROcodone 325 MG/7.5 MG TAB PO PRN ×2 (15:25→23:47)
[2017-08-02 16:32] VITALS: BP 122/58; PULSE 84; RESP 18; TEMP 97.7; O2SAT 95
--- NOTE | 2017-08-02 19:25 | HHI.GIFU ---
Subjective Remarks Patient reports significant improvement in her symptoms of abdominal pain, abdominal distention nausea and vomiting. She had an episode of pain following eating a turkey sandwich this afternoon. She denies any fever chills jaundice or pruritus. Lipase level from today show improvement. Objective Vitals I&O Vital Signs Date Time Temp Pulse Resp B/P (MAP) Pulse Ox O2 Delivery O2 Flow Rate FiO2 08/02/17 16:35 18 08/02/17 16:32 97.7 84 18 122/58 (79) 95 08/02/17 12:00 97.8 91 16 121/85 (97) 94 08/02/17 08:00 97.2 80 16 132/76 (94) 96 08/02/17 00:00 98.7 90 20 134/65 (88) 96 08/01/17 20:00 98.6 89 20 136/63 (87) 96 I/O 08/01/17 08/01/17 08/01/17 08/02/17 08/02/17 08/02/17 07:00 15:00 23:00 07:00 15:00 23:00 Intake Total 240 ml 820 ml 507 ml Output Total 400 ml 100 ml Balance 240 ml 820 ml -400 ml 407 ml Intake Oral 240 ml 820 ml 507 ml Output Urine Total 400 ml 100 ml # Voids 3 5 # Bowel Movements 0 0 Laboratory Laboratory Tests Test 08/02/17 06:00 White Blood Count 8.5 Red Blood Count 3.70 Hemoglobin 12.6 Hematocrit 37.2 Mean Corpuscular Volume 100.5 Mean Corpuscular Hemoglobin 33.9 Mean Corpuscular Hemoglobin Concent 33.7 Red Cell Distribution Width 14.1 Platelet Count 118 Mean Platelet Volume 8.7 Neutrophils (%) (Auto) 73.3 Lymphocytes (%) (Auto) 19.8 Monocytes (%) (Auto) 6.3 Eosinophils (%) (Auto) 0.3 Basophils (%) (Auto) 0.3 Neutrophils # (Auto) 6.3 Lymphocytes # (Auto) 1.7 Monocytes # (Auto) 0.5 Eosinophils # (Auto) 0.0 Basophils # (Auto) 0.0 CBC Comment DIFF FINAL Differential Comment Blood Urea Nitrogen 9 Creatinine 0.61 Random Glucose 94 Total Protein 7.0 Albumin 2.8 Calcium Level 8.7 Alkaline Phosphatase 150 Aspartate Amino Transf (AST/SGOT) 192 Alanine Aminotransferase (ALT/SGPT) 59 Total Bilirubin 1.7 Sodium Level 139 Potassium Level 2.9 Chloride Level 106 Carbon Dioxide Level 21.1 Anion Gap 12 Estimat Glomerular Filtration Rate 95 Magnesium Level 1.5 Triglycerides Level 88 Cholesterol Level 104 LDL Cholesterol 55 HDL Cholesterol 31.1 Cholesterol/HDL Ratio 3.34 Lipase 1923 CA 19-9 Antigen 148.9 Hepatitis A IgM Antibody NEGATIVE Hepatitis B Surface Antigen NEGATIVE Hepatitis B Core IgM Antibody NEGATIVE Hepatitis C Antibody NEGATIVE Date/Time Source Procedure Growth Status 08/01/17 01:16 Urine Clean Catch Urine Culture - Preliminary Gram Negative Jacob Resulted Physical Exam HEENT: Pupils round and reactive to light; normocephalic; atraumatic; no jaundice. Throat is clear. NECK: Neck is supple, no JVD, no lymphadenopathy. CHEST: Chest is clear to auscultation and percussion. CARDIAC: Regular rate and rhythm with no murmur gallop or rubs. ABDOMEN: Soft, nondistended, nontender; no hepatosplenomegaly; bowel sounds are present in all four quadrants. EXTREMITIES: No clubbing, cyanosis, or edema. SKIN: Normal; no rash; no jaundice. NECK SKEWER: No focal deficits; alert and oriented times three. Assessment and Plan Assessment: (1) Abnormal liver enzymes ICD Codes: R74.8 - Abnormal levels of other serum enzymes (2) Alcoholic pancreatitis ICD Codes: K85.20 - Alcohol induced acute pancreatitis without necrosis or infection Plan 1. Acute on chronic alcoholic pancreatitis. In view of elevated CA 199 levels CA pancreas and requires further evaluation possibility of underlying. Patient would need EUS on an outpatient basis 2. Advance diet slowly as tolerated. Currently she should be only given full liquid diet 3. Check lipase levels in the a.m. Emile Melton MD Aug 02, 2017 19:25
[2017-08-02 20:00] VITALS: BP 127/62; PULSE 83; RESP 20; TEMP 97.4; O2SAT 96
[2017-08-02] MEDS: ENOXAPARIN SODIUM 40 MG/0.4 ML SYRINGE SQ SCH (20:44)
[2017-08-03] VITALS: BP 126/71; PULSE 80; RESP 20; TEMP 97.1; O2SAT 98
[2017-08-03 08:00] VITALS: BP 116/58; PULSE 86; RESP 18; TEMP 96.7; O2SAT 95
[2017-08-03] MEDS: SODIUM CHLORIDE 0.9% FLUSH 10 ML FLUSH IV FLUSH SCH ×2 (08:55→22:06)
[2017-08-03] MEDS ORDERED: HYDR-3580 PO (10:03)
[2017-08-03] MEDS ORDERED: CEFU1TAB18 PO (10:05)
--- NOTE | 2017-08-03 10:06 | HHI.DCPOC ---
Discharge Care Plan Diagnosis: (1) Acute pancreatitis (2) Alcoholic pancreatitis (3) Abnormal liver enzymes (4) UTI (urinary tract infection) Additional Problems AVOID ALCOHOL AND FATTY FOODS Goals to Promote Your Health * To prevent worsening of your condition and complications * To maintain your health at the optimal level Directions to Meet Your Goals Take your medications as prescribed Follow your dietary instruction Follow activity as directed Keep your appointments as scheduled Take your immunizations and boosters as scheduled If your symptoms worsen call your PCP, if no PCP go to Urgent Care Center or Emergency Room Smoking is Dangerous to Your Health. Avoid second hand smoke Call the 24-hour hour crisis hotline for domestic abuse at Moy Brock MD Aug 03, 2017 10:06
[2017-08-03 10:51] LABS: BICARBONATE 24.4 MEQ/L (21.0-32.0); CREATININE 0.42 MG/DL (0.50-1.00)
--- NOTE | 2017-08-03 11:05 | HHI.PR ---
Subjective Remarks RN denies any deterioration since last night. Patient has sepsis she had some mild pain yesterday. But tolerated dinner fine without pain and nausea. This morning tolerated applesauce well. Objective Vital Signs Date Time Temp Pulse Resp B/P (MAP) Pulse Ox O2 Delivery O2 Flow Rate FiO2 08/03/17 08:00 96.7 86 18 116/58 (77) 95 08/03/17 00:00 97.1 80 20 126/71 (89) 98 08/02/17 20:00 97.4 83 20 127/62 (83) 96 08/02/17 16:35 18 08/02/17 16:32 97.7 84 18 122/58 (79) 95 08/02/17 12:00 97.8 91 16 121/85 (97) 94 I/O 08/02/17 08/02/17 08/02/17 08/03/17 08/03/17 08/03/17 07:00 15:00 23:00 07:00 15:00 23:00 Intake Total 507 ml 420 ml Output Total 400 ml 100 ml Balance -400 ml 407 ml 420 ml Intake Oral 507 ml 420 ml Output Urine Total 400 ml 100 ml # Voids 3 # Bowel Movements 0 Result Diagram: 08/02/17 0600 08/03/17 1000 Objective Remarks Mild abdominal tenderness to palpation diffusely, nondistended, soft otherwise, patient lying in bed, no acute distress A/P Assessment and Plan A/P Problem List: Acute pancreatitis Discussed GI for me to f/u on lipase - Lipase is slightly fluctuating upward, continue IV hydration with full liquid diet low-fat, discussed with gastroenterology. Stopping IV pain meds. trial of po meds today. starting oral laxative. immunology bloodwork pending. Elevated tumor marker - to have EUS done as outpatient per GI hypokalemia - still recurring, low magnesium, replacing both IVF, repeat K in AM newly dx UTI - E.coli, starting Rocephin dropping h/h, repeat in AM - possibly dilutional but monitor SCDs for now given dropping h/h Moy Brock MD Aug 03, 2017 11:05
[2017-08-03] MEDS: cefTRIAXone INJ 1,000 MG in SODIUM CHLORIDE 0.9% INJ 100 ML IV SCH (11:11)
[2017-08-03] MEDS: PANTOPRAZOLE SODIUM 40 MG VIAL IV PUSH SCH ×2 (11:14→22:05)
[2017-08-03] MEDS: POTASSIUM CHLORIDE 20 MEQ PWD PACKET PO ONE ×2 (11:36→11:42)
[2017-08-03 11:50] LABS: MAGNESIUM 1.7 MG/DL (1.5-2.5)
[2017-08-03] MEDS: ACETAMINOPHEN/HYDROcodone 325 MG/7.5 MG TAB PO PRN ×2 (11:50→22:06)
[2017-08-03] MEDS ORDERED: POTASSIUM CHLORIDE INJ 20 MEQ, MAGNESIUM SULFATE INJ 2 GM in SODIUM CHLOR 0.9% 1000 ML ... IV ONE (12:00)
[2017-08-03 13:00] VITALS: BP 106/68; PULSE 87; RESP 18; O2SAT 93
[2017-08-03 13:19] LABS: SMOOTH MUSCLE TOTAL AUTOABS Negative (Negative)
[2017-08-03 16:00] VITALS: BP 122/63; PULSE 87
[2017-08-03 20:00] VITALS: BP 126/76; PULSE 91; RESP 20; TEMP 97.4; O2SAT 98
--- NOTE | 2017-08-03 20:21 | HHI.GIFU ---
Subjective Remarks Patient comfortably laying on the bed. She has no acute distress. She denies any significant abdominal pain nausea vomiting constipation diarrhea fever chills GI bleeding. Labs done today showed presence of hypokalemia for which patient is being treated. There is mild elevation in serum lipase level as compared to yesterday. Objective Vitals I&O Vital Signs Date Time Temp Pulse Resp B/P (MAP) Pulse Ox O2 Delivery O2 Flow Rate FiO2 08/03/17 16:00 87 122/63 (82) 08/03/17 13:00 87 18 106/68 (81) 93 08/03/17 08:00 96.7 86 18 116/58 (77) 95 08/03/17 00:00 97.1 80 20 126/71 (89) 98 I/O 08/02/17 08/02/17 08/02/17 08/03/17 08/03/17 08/03/17 07:00 15:00 23:00 07:00 15:00 23:00 Intake Total 507 ml 420 ml 1100 ml Output Total 400 ml 100 ml 100 ml Balance -400 ml 407 ml 420 ml 1100 ml -100 ml Intake Oral 507 ml 420 ml IV Total 1100 ml Output Urine Total 400 ml 100 ml 100 ml # Voids 3 3 # Bowel Movements 0 Laboratory Laboratory Tests Test 08/03/17 10:00 Blood Urea Nitrogen 10 Creatinine 0.42 Random Glucose 108 Calcium Level 9.0 Magnesium Level 1.7 Sodium Level 136 Potassium Level 2.9 Chloride Level 101 Carbon Dioxide Level 24.4 Anion Gap 11 Estimat Glomerular Filtration Rate 146 Lipase 2034 Date/Time Source Procedure Growth Status 08/01/17 01:16 Urine Clean Catch Urine Culture - Final Escherichia Coli Complete Physical Exam HEENT: Pupils round and reactive to light; normocephalic; atraumatic; no jaundice. Throat is clear. NECK: Neck is supple, no JVD, no lymphadenopathy. CHEST: Chest is clear to auscultation and percussion. CARDIAC: Regular rate and rhythm with no murmur gallop or rubs. ABDOMEN: Soft, nondistended, nontender; no hepatosplenomegaly; bowel sounds are present in all four quadrants. EXTREMITIES: No clubbing, cyanosis, or edema. SKIN: Normal; no rash; no jaundice. 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 Assessment and Plan Assessment: (1) Abnormal liver enzymes ICD Codes: R74.8 - Abnormal levels of other serum enzymes (2) Alcoholic pancreatitis ICD Codes: K85.20 - Alcohol induced acute pancreatitis without necrosis or infection (3) Hypokalemia ICD Codes: E87.6 - Hypokalemia Plan 1. Acute on chronic alcoholic pancreatitis. In view of elevated CA 199 levels CA pancreas and requires further evaluation possibility of underlying. Patient would need EUS on an outpatient basis 2. Advance diet slowly as tolerated. Currently she should be only given full liquid diet 3. Check lipase and potassium levels in the a.m. Emile Melton MD Aug 03, 2017 20:21
[2017-08-03] MEDS: ENOXAPARIN SODIUM 40 MG/0.4 ML SYRINGE SQ SCH (20:38)
[2017-08-04] VITALS: BP 134/81; PULSE 89; RESP 20; TEMP 97.6; O2SAT 97
[2017-08-04 07:47] LABS: AUTOMATED NEUTROPHIL # 4.1 TH/MM3 (1.8-7.7); BASOPHIL % 0.3 % (0.0-2.0); EOSINOPHIL # 0.1 TH/MM3 (0-0.4); EOSINOPHIL % 1.1 % (0.0-4.0); HEMATOCRIT 36.9 % (35.0-46.0); HEMOGLOBIN 12.7 GM/DL (11.6-15.3); LYMPH % 24.9 % (9.0-44.0); LYMPHOCYTE # 1.6 TH/MM3 (1.0-4.8); MEAN CELL VOLUME 99.2 FL (80.0-100.0); MEAN CORPUSCULAR HEMOGLOBIN 34.2 PG (27.0-34.0); MEAN CORPUSCULAR HGB CONC 34.5 % (32.0-36.0); MEAN PLATELET VOLUME 8.3 FL (7.0-11.0); MONOCYTE # 0.6 TH/MM3 (0-0.9); NEUT % 64.7 % (16.0-70.0); PLATELET COUNT 150 TH/MM3 (150-450); RED BLOOD COUNT 3.72 MIL/MM3 (4.00-5.30); RED CELL DISTRIBUTION WIDTH 14.7 % (11.6-17.2); WHITE BLOOD COUNT 6.4 TH/MM3 (4.0-11.0)
[2017-08-04 07:58] LABS: BICARBONATE 28.2 MEQ/L (21.0-32.0); CALCIUM 8.7 MG/DL (8.5-10.1)
[2017-08-04 08:00] VITALS: BP 165/77; PULSE 99; RESP 18; TEMP 99; O2SAT 93
[2017-08-04 08:02] LABS: CREATININE 0.31 MG/DL (0.50-1.00)
[2017-08-04] MEDS: SODIUM CHLORIDE 0.9% FLUSH 10 ML FLUSH IV FLUSH SCH ×2 (08:48→22:10)
[2017-08-04] MEDS: ACETAMINOPHEN/HYDROcodone 325 MG/7.5 MG TAB PO PRN ×3 (08:49→22:12)
[2017-08-04] MEDS: cefTRIAXone INJ 1,000 MG in SODIUM CHLORIDE 0.9% INJ 100 ML IV SCH (10:00)
[2017-08-04] MEDS: PANTOPRAZOLE SODIUM 40 MG VIAL IV PUSH SCH ×2 (11:00→22:11)
[2017-08-04 12:00] VITALS: BP 120/68; PULSE 80; RESP 18; TEMP 98.3; O2SAT 93
--- NOTE | 2017-08-04 13:56 | HHI.PR ---
Subjective Remarks Follow-up acute pancreatitis. Patient seen and examined, lying in bed comfortably. With mild tenderness to palpation of left upper quadrant. Patient has been tolerating p.o. intake well, denies any nausea or vomiting. No diarrhea. Has been ambulating well. Spoke to GI who plans to see patient today, to follow-up with tumor markers and elevated lipase. Vital signs are stable. Objective Vitals Vital Signs Date Time Temp Pulse Resp B/P (MAP) Pulse Ox O2 Delivery O2 Flow Rate FiO2 08/04/17 09:49 20 08/04/17 08:00 99.0 99 18 165/77 (106) 93 08/04/17 00:00 97.6 89 20 134/81 (98) 97 08/03/17 20:00 97.4 91 20 126/76 (93) 98 08/03/17 16:00 87 122/63 (82) I/O 08/03/17 08/03/17 08/03/17 08/04/17 08/04/17 08/04/17 06:59 14:59 22:59 06:59 14:59 22:59 Intake Total 420 ml 1100 ml 1000 ml Output Total 100 ml Balance 420 ml 1100 ml -100 ml 1000 ml Intake Oral 420 ml 1000 ml IV Total 1100 ml Output Urine Total 100 ml # Voids 3 3 3 # Bowel Movements 0 0 Result Diagram: 08/04/17 0708/04/17 0726 Imaging Last Impressions Cholangiopancreatography MRI 08/01/17 0000 Signed Impressions: Service Date/Time: Tuesday, August 01, 2017 12:15 - CONCLUSION: No dilation of the intra-articular hepatic biliary ducts. No filling defects seen. The pancreatic duct is normal in dimension.. Chapincito Abbasi MD Abdomen/Pelvis CT 07/31/17 0000 Signed Impressions: Service Date/Time: Monday, July 31, 2017 17:07 - CONCLUSION: 1. Abnormal appearance the peripancreatic tissues with induration of the fat and poor delineation of the head and body. The findings suggest pancreatitis. No focal cystic areas seen and no calcifications. 2. Diffuse fatty change in the liver. 3. Diverticulosis of the colon without radiographic evidence of diverticulitis. 4. 3.7 cm low-density lesion in the left adnexal region of uncertain significance. This could be related to the ovary. Chapincito Abbasi MD Objective Remarks GENERAL: Well-developed, well-nourished patient in NAD. SKIN: Warm and dry. No rash. HEAD: Normocephalic. Atraumatic. EYES: Pupils equal and round. No scleral icterus. No injection or drainage. ENT: No nasal bleeding or discharge. Mucous membranes pink and moist. NECK: Supple. Trachea midline. CARDIOVASCULAR: Regular rate and rhythm. S1, S2 noted. No murmur appreciated. RESPIRATORY: No accessory muscle use. Clear to auscultation. Breath sounds equal bilaterally. GASTROINTESTINAL: Abdomen soft. Normoactive bowel sounds x4. Pain to palpation left upper quadrant. MUSCULOSKELETAL: No obvious deformities. Extremities without clubbing, cyanosis , or edema. NEUROLOGICAL: Awake and alert. No obvious cranial nerve deficits. Motor grossly within normal limits. 5/5 muscle strength in bilateral upper and lower extremities. Normal speech. PSYCHIATRIC: Appropriate mood and affect; insight and judgment normal. A/P Problem List: (1) Acute pancreatitis ICD Code: K85.90 - Acute pancreatitis without necrosis or infection, unspecified Status: Acute Assessment and Plan Patient is a 77 female with minimal Past medical history who complains of 4 days of nausea and severe diffuse abd pain improved by nausea and Morphine. Acute pancreatitis with left upper quadrant abdominal pain Abdominal pelvis CT reviewed showing abnormal appearance of the peripancreatic tissues, suggest pancreatitis. Diffuse fatty liver. Diverticulitis. 3.7 cm low-density lesion in the left adnexal region. MRCP performed showing no dilation of the hepatic biliary ducts. No filling defects. Pancreatic duct normal. Hepatitis panel negative. CA 19-9 antigen 148.9. Gastroenterology following, appreciate input recommendations. IgG pending. Follow. CBC and BMP reviewed, essentially unremarkable. Afebrile. Lipase elevated, 1999. Follow trend. Supportive care. Patient tolerating p.o. diet. Assess for nausea vomiting or diarrhea. Control pain, [place] available as needed. Continue Protonix 40 IV twice daily. Urinary tract infection, urine culture growing E. coli. Placed on Rocephin. Continue. Hypokalemia, status post replacement: Potassium level 2.9 yesterday. Resolved 3.5 today. DVT prophylaxis: SCDs. Problem Qualifiers (1) Acute pancreatitis: Qualified Codes: K85.90 - Acute pancreatitis without necrosis or infection, unspecified Zee Hill Aug 04, 2017 13:56
--- NOTE | 2017-08-04 14:49 | HHI.GIFU ---
Subjective Remarks Patient resting in bed doing well minimal abdominal discomfort tolerating intake Objective Vitals I&O Vital Signs Date Time Temp Pulse Resp B/P (MAP) Pulse Ox O2 Delivery O2 Flow Rate FiO2 08/04/17 12:00 98.3 80 18 120/68 (85) 93 08/04/17 09:49 20 08/04/17 08:00 99.0 99 18 165/77 (106) 93 08/04/17 00:00 97.6 89 20 134/81 (98) 97 08/03/17 20:00 97.4 91 20 126/76 (93) 98 08/03/17 16:00 87 122/63 (82) I/O 08/03/17 08/03/17 08/03/17 08/04/17 08/04/17 08/04/17 07:00 15:00 23:00 07:00 15:00 23:00 Intake Total 420 ml 1100 ml 1000 ml Output Total 100 ml Balance 420 ml 1100 ml -100 ml 1000 ml Intake Oral 420 ml 1000 ml IV Total 1100 ml Output Urine Total 100 ml # Voids 3 3 3 # Bowel Movements 0 0 Laboratory Laboratory Tests Test 08/04/17 07:26 White Blood Count 6.4 Red Blood Count 3.72 Hemoglobin 12.7 Hematocrit 36.9 Mean Corpuscular Volume 99.2 Mean Corpuscular Hemoglobin 34.2 Mean Corpuscular Hemoglobin Concent 34.5 Red Cell Distribution Width 14.7 Platelet Count 150 Mean Platelet Volume 8.3 Neutrophils (%) (Auto) 64.7 Lymphocytes (%) (Auto) 24.9 Monocytes (%) (Auto) 9.0 Eosinophils (%) (Auto) 1.1 Basophils (%) (Auto) 0.3 Neutrophils # (Auto) 4.1 Lymphocytes # (Auto) 1.6 Monocytes # (Auto) 0.6 Eosinophils # (Auto) 0.1 Basophils # (Auto) 0.0 CBC Comment DIFF FINAL Differential Comment Blood Urea Nitrogen 8 Creatinine 0.31 Random Glucose 107 Calcium Level 8.7 Sodium Level 136 Potassium Level 3.5 Chloride Level 101 Carbon Dioxide Level 28.2 Anion Gap 7 Estimat Glomerular Filtration Rate 208 Lipase 1999 Date/Time Source Procedure Growth Status 08/01/17 01:16 Urine Clean Catch Urine Culture - Final Escherichia Coli Complete Imaging Last Impressions Cholangiopancreatography MRI 08/01/17 0000 Signed Impressions: Service Date/Time: Tuesday, August 01, 2017 12:15 - CONCLUSION: No dilation of the intra-articular hepatic biliary ducts. No filling defects seen. The pancreatic duct is normal in dimension.. Chapincito Abbasi MD Abdomen/Pelvis CT 07/31/17 0000 Signed Impressions: Service Date/Time: Monday, July 31, 2017 17:07 - CONCLUSION: 1. Abnormal appearance the peripancreatic tissues with induration of the fat and poor delineation of the head and body. The findings suggest pancreatitis. No focal cystic areas seen and no calcifications. 2. Diffuse fatty change in the liver. 3. Diverticulosis of the colon without radiographic evidence of diverticulitis. 4. 3.7 cm low-density lesion in the left adnexal region of uncertain significance. This could be related to the ovary. Chapincito Abbasi MD Physical Exam NECK: Neck is supple, no JVD, CHEST: Chest is clear to auscultation and percussion. CARDIAC: Regular rate and rhythm with no murmur gallop or rubs. ABDOMEN: Soft, nondistended, nontender; no hepatosplenomegaly; bowel sounds are present in all four quadrants. EXTREMITIES: No clubbing, cyanosis, or edema. SKIN: Normal; no rash; no jaundice. 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 Assessment and Plan Assessment: (1) Abnormal liver enzymes ICD Codes: R74.8 - Abnormal levels of other serum enzymes (2) Alcoholic pancreatitis ICD Codes: K85.20 - Alcohol induced acute pancreatitis without necrosis or infection (3) Hypokalemia ICD Codes: E87.6 - Hypokalemia (4) Alcoholic hepatitis ICD Codes: K70.10 - Alcoholic hepatitis without ascites Plan 1. Acute on chronic alcoholic pancreatitis seems to be resolving. In view of elevated CA 199 levels CA pancreas and requires further evaluation possibility of underlying. Patient would need EUS on an outpatient basis 2. Advance diet slowly as tolerated. 3. Check lipase and potassium levels in the a.m. Avoid ALL ALCOHOL Conor Dozier MD Aug 04, 2017 14:49
[2017-08-04 16:00] VITALS: BP_SYST 119; PULSE 79; RESP 18; TEMP 97; O2SAT 93
[2017-08-04 20:00] VITALS: BP 106/70; PULSE 87; RESP 20; TEMP 96; O2SAT 96
[2017-08-04] MEDS: HEPARIN SODIUM - SQ 10,000 UNITS/ML VIAL SQ SCH (22:11)
[2017-08-04] MEDS: DOCUSATE SODIUM 50 MG/SENNA 8.6 MG TAB PO SCH (22:11)
[2017-08-04 23:52] LABS: MITOCHONDRIAL ABS LESS THAN 20.0 U (<=20.0)
[2017-08-05] VITALS: BP 142/87; PULSE 84; RESP 20; TEMP 98.5; O2SAT 96
[2017-08-05 07:21] LABS: BICARBONATE 29.7 MEQ/L (21.0-32.0); CALCIUM 8.9 MG/DL (8.5-10.1)
[2017-08-05 07:25] LABS: CREATININE 0.34 MG/DL (0.50-1.00)
[2017-08-05] MEDS: DOCUSATE SODIUM 50 MG/SENNA 8.6 MG TAB PO SCH ×2 (07:44→21:45)
[2017-08-05] MEDS: ACETAMINOPHEN/HYDROcodone 325 MG/7.5 MG TAB PO PRN ×3 (07:44→22:20)
[2017-08-05] MEDS: SODIUM CHLORIDE 0.9% FLUSH 10 ML FLUSH IV FLUSH SCH ×2 (07:45→21:44)
[2017-08-05 08:00] VITALS: BP 123/69; PULSE 82; RESP 18; TEMP 98.6; O2SAT 92
[2017-08-05] MEDS ORDERED: POTASSIUM CHLORIDE 10 MEQ CONTROLLED RELEASE TAB PO ONE (08:45)
[2017-08-05] MEDS: cefTRIAXone INJ 1,000 MG in SODIUM CHLORIDE 0.9% INJ 100 ML IV SCH (09:37)
[2017-08-05] MEDS: PANTOPRAZOLE SODIUM 40 MG VIAL IV PUSH SCH ×2 (09:37→21:46)
[2017-08-05] MEDS: HEPARIN SODIUM - SQ 10,000 UNITS/ML VIAL SQ SCH ×2 (09:38→21:44)
[2017-08-05 12:00] VITALS: BP 125/68; PULSE 79; RESP 18; TEMP 98.8; O2SAT 95
--- NOTE | 2017-08-05 12:12 | HHI.GIFU ---
Subjective Remarks Patient was seen and examined, laying in bed comfortably, tolerating some liquid diet, anxious to go home, denying any abdominal pain at this time Objective Vitals I&O Vital Signs Date Time Temp Pulse Resp B/P (MAP) Pulse Ox O2 Delivery O2 Flow Rate FiO2 08/05/17 08:44 20 08/05/17 08:00 98.6 82 18 123/69 (87) 92 08/05/17 00:00 98.5 84 20 142/87 (105) 96 08/04/17 20:00 96.0 87 20 106/70 (82) 96 08/04/17 16:00 97.0 79 18 119/ 93 I/O 08/04/17 08/04/17 08/04/17 08/05/17 08/05/17 08/05/17 06:59 14:59 22:59 06:59 14:59 22:59 Intake Total 1000 ml 600 ml 240 ml Balance 1000 ml 600 ml 240 ml Intake Oral 1000 ml 600 ml 240 ml # Voids 3 2 # Bowel Movements 0 0 Laboratory Laboratory Tests Test 08/05/17 06:29 Blood Urea Nitrogen 7 Creatinine 0.34 Random Glucose 109 Calcium Level 8.9 Sodium Level 140 Potassium Level 3.2 Chloride Level 103 Carbon Dioxide Level 29.7 Anion Gap 7 Estimat Glomerular Filtration Rate 187 Lipase 1133 Date/Time Source Procedure Growth Status 08/01/17 01:16 Urine Clean Catch Urine Culture - Final Escherichia Coli Complete Physical Exam NECK: Neck is supple, no JVD, CHEST: Chest is clear to auscultation and percussion. CARDIAC: Regular rate and rhythm with no murmur gallop or rubs. ABDOMEN: Soft, nondistended, minimal tenderness no hepatosplenomegaly; bowel sounds are present in all four quadrants. EXTREMITIES: No clubbing, cyanosis, or edema. SKIN: Normal; no rash; no jaundice. 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 Assessment and Plan Assessment: (1) Abnormal liver enzymes ICD Codes: R74.8 - Abnormal levels of other serum enzymes (2) Alcoholic pancreatitis ICD Codes: K85.20 - Alcohol induced acute pancreatitis without necrosis or infection (3) Hypokalemia ICD Codes: E87.6 - Hypokalemia (4) Alcoholic hepatitis ICD Codes: K70.10 - Alcoholic hepatitis without ascites Plan: Patient is 77-year-old lady with abdominal pain, pancreatitis, possibly alcohol-related, where try to rule out other etiologies, also elevated liver function test, hepatitis profile was negative, She is feeling better but her lipase still elevated We will check liver function tomorrow Recheck lipase if trending down patient can be discharged Avoid alcohol completely Follow-up labs Plan 1. Acute on chronic alcoholic pancreatitis seems to be resolving. In view of elevated CA 199 levels CA pancreas and requires further evaluation possibility of underlying. Patient would need EUS on an outpatient basis 2. Advance diet slowly as tolerated. 3. Check lipase and potassium levels in the a.m. Avoid ALL ALCOHOL Karine Alejo MD Aug 05, 2017 12:12
--- NOTE | 2017-08-05 12:31 | HHI.PR ---
Subjective Remarks Follow-up acute alcoholic pancreatitis. Patient seen and examined, all symptoms have resolved. Pain is relieved. Tolerating p.o. intake, denies abdominal pain, nausea or vomiting. Denies any diarrhea. Has been ambulating. Vital signs are stable. Objective Vitals Vital Signs Date Time Temp Pulse Resp B/P (MAP) Pulse Ox O2 Delivery O2 Flow Rate FiO2 08/05/17 08:44 20 08/05/17 08:00 98.6 82 18 123/69 (87) 92 08/05/17 00:00 98.5 84 20 142/87 (105) 96 08/04/17 20:00 96.0 87 20 106/70 (82) 96 08/04/17 16:00 97.0 79 18 119/ 93 I/O 08/04/17 08/04/17 08/04/17 08/05/17 08/05/17 08/05/17 07:00 15:00 23:00 07:00 15:00 23:00 Intake Total 1000 ml 600 ml 240 ml Balance 1000 ml 600 ml 240 ml Intake Oral 1000 ml 600 ml 240 ml # Voids 3 2 # Bowel Movements 0 0 Result Diagram: 08/04/17 0726 08/05/17 0629 Imaging Last Impressions Cholangiopancreatography MRI 08/01/17 0000 Signed Impressions: Service Date/Time: Tuesday, August 01, 2017 12:15 - CONCLUSION: No dilation of the intra-articular hepatic biliary ducts. No filling defects seen. The pancreatic duct is normal in dimension.. Chapincito Abbasi MD Abdomen/Pelvis CT 07/31/17 0000 Signed Impressions: Service Date/Time: Monday, July 31, 2017 17:07 - CONCLUSION: 1. Abnormal appearance the peripancreatic tissues with induration of the fat and poor delineation of the head and body. The findings suggest pancreatitis. No focal cystic areas seen and no calcifications. 2. Diffuse fatty change in the liver. 3. Diverticulosis of the colon without radiographic evidence of diverticulitis. 4. 3.7 cm low-density lesion in the left adnexal region of uncertain significance. This could be related to the ovary. Chapincito Abbasi MD Objective Remarks GENERAL: Well-developed, well-nourished patient in NAD. SKIN: Warm and dry. No rash. HEAD: Normocephalic. Atraumatic. EYES: Pupils equal and round. No scleral icterus. No injection or drainage. ENT: No nasal bleeding or discharge. Mucous membranes pink and moist. NECK: Supple. Trachea midline. CARDIOVASCULAR: Regular rate and rhythm. S1, S2 noted. No murmur appreciated. RESPIRATORY: No accessory muscle use. Clear to auscultation. Breath sounds equal bilaterally. GASTROINTESTINAL: Abdomen soft. Normoactive bowel sounds x4. MUSCULOSKELETAL: No obvious deformities. Extremities without clubbing, cyanosis , or edema. NEUROLOGICAL: Awake and alert. No obvious cranial nerve deficits. Motor grossly within normal limits. 5/5 muscle strength in bilateral upper and lower extremities. Normal speech. PSYCHIATRIC: Appropriate mood and affect; insight and judgment normal. A/P Problem List: (1) Acute pancreatitis ICD Code: K85.90 - Acute pancreatitis without necrosis or infection, unspecified Status: Acute Assessment and Plan Patient is a 77 female with minimal Past medical history who complains of 4 days of nausea and severe diffuse abd pain improved by nausea and Morphine. Acute pancreatitis with left upper quadrant abdominal pain Abdominal pelvis CT reviewed showing abnormal appearance of the peripancreatic tissues, suggest pancreatitis. Diffuse fatty liver. Diverticulitis. 3.7 cm low-density lesion in the left adnexal region. MRCP performed showing no dilation of the hepatic biliary ducts. No filling defects. Pancreatic duct normal. Hepatitis panel negative. CA 19-9 antigen 148.9 likely reactive to pancreatitis Gastroenterology following, appreciate input recommendations. IgG pending. Follow. CBC, essentially unremarkable. Afebrile. Lipase elevated, 2000-->1133. Follow trend. Supportive care. Patient tolerating p.o. diet. Assess for nausea vomiting or diarrhea. Control pain, [place] available as needed. Continue Protonix 40 IV twice daily. Encouraged alcohol cessation. Urinary tract infection, urine culture growing E. coli. Placed on Rocephin. Continue. Hypokalemia, mild: Potassium level 3.2. Replaced. DVT prophylaxis: SCDs. Discharge Planning If lipase trending down tomorrow, can be discharged. Problem Qualifiers (1) Acute pancreatitis: Qualified Codes: K85.90 - Acute pancreatitis without necrosis or infection, unspecified Zee Hill Aug 05, 2017 12:31
[2017-08-05 16:00] VITALS: BP 118/68; PULSE 80; RESP 18; TEMP 98.8; O2SAT 95
[2017-08-05 20:00] VITALS: BP 103/57; PULSE 88; RESP 20; TEMP 96.8; O2SAT 93
[2017-08-06] VITALS: BP 117/57; PULSE 86; RESP 20; TEMP 97.9; O2SAT 92
[2017-08-06 06:21] LABS: ALBUMIN 2.9 GM/DL (3.4-5.0); CALCIUM 8.9 MG/DL (8.5-10.1)
[2017-08-06 06:22] LABS: BICARBONATE 28.7 MEQ/L (21.0-32.0)
[2017-08-06 06:24] LABS: CREATININE 0.36 MG/DL (0.50-1.00); DIRECT BILIRUBIN ADULT 0.5 MG/DL (0.0-0.2)
[2017-08-06 06:26] LABS: INDIRECT BILIRUBIN 0.5 MG/DL (0.0-0.8); TOTAL PROTEIN 7.2 GM/DL (6.4-8.2)
--- NOTE | 2017-08-06 07:52 | HHI.DS ---
Discharge Summary Admission Date Jul 31, 2017 at 18:48 Discharge Date: Aug 07, 2017 Admitting Diagnosis Acute pancreatitis (1) Acute pancreatitis ICD Code: K85.90 - Acute pancreatitis without necrosis or infection, unspecified Status: Acute Procedures HIDA scan, normal. MRCP. Abdominal/pelvis CT. See results below. Brief History - From Admission patient is a 77 female with minimal Past medical history who complains of 4 days of nausea and severe diffuse abd pain improved by nausea and Morphine. She had no fever or chills. Now hematemesis or hematochezia She had elevated lipase and ct confirming clinical suspicion of pancreatitis and is therefore admitted. CBC/BMP: 08/04/17 0726 08/06/17 0520 Significant Findings Laboratory Tests Test 08/03/17 10:00 08/04/17 07:26 08/05/17 06:29 08/06/17 05:20 Creatinine 0.42 MG/DL (0.50-1.00) 0.31 MG/DL (0.50-1.00) 0.34 MG/DL (0.50-1.00) 0.36 MG/DL (0.50-1.00) Random Glucose 108 MG/DL (74-106) 107 MG/DL (74-106) 109 MG/DL (74-106) Potassium Level 2.9 MEQ/L (3.5-5.1) 3.2 MEQ/L (3.5-5.1) 3.2 MEQ/L (3.5-5.1) Lipase 2035 U/L (73-393) 2000 U/L (73-393) 1133 U/L (73-393) 835 U/L (73-393) Red Blood Count 3.72 MIL/MM3 (4.00-5.30) Mean Corpuscular Hemoglobin 34.2 PG (27.0-34.0) Monocytes (%) (Auto) 9.0 % (0.0-8.0) Albumin 2.9 GM/DL (3.4-5.0) Alkaline Phosphatase 127 U/L (45-117) Aspartate Amino Transf (AST/SGOT) 109 U/L (15-37) Direct Bilirubin 0.5 MG/DL (0.0-0.2) Imaging Last Impressions Cholangiopancreatography MRI 08/01/17 0000 Signed Impressions: Service Date/Time: Tuesday, August 01, 2017 12:15 - CONCLUSION: No dilation of the intra-articular hepatic biliary ducts. No filling defects seen. The pancreatic duct is normal in dimension.. Chapincito Abbasi MD Abdomen/Pelvis CT 07/31/17 0000 Signed Impressions: Service Date/Time: Monday, July 31, 2017 17:07 - CONCLUSION: 1. Abnormal appearance the peripancreatic tissues with induration of the fat and poor delineation of the head and body. The findings suggest pancreatitis. No focal cystic areas seen and no calcifications. 2. Diffuse fatty change in the liver. 3. Diverticulosis of the colon without radiographic evidence of diverticulitis. 4. 3.7 cm low-density lesion in the left adnexal region of uncertain significance. This could be related to the ovary. Chapincito Abbasi MD PE at Discharge GENERAL: Well-developed, well-nourished patient in NAD. SKIN: Warm and dry. No rash. HEAD: Normocephalic. Atraumatic. EYES: Pupils equal and round. No scleral icterus. No injection or drainage. ENT: No nasal bleeding or discharge. Mucous membranes pink and moist. NECK: Supple. Trachea midline. CARDIOVASCULAR: Regular rate and rhythm. S1, S2 noted. No murmur appreciated. RESPIRATORY: No accessory muscle use. Clear to auscultation. Breath sounds equal bilaterally. GASTROINTESTINAL: Abdomen soft. Normoactive bowel sounds x4. MUSCULOSKELETAL: No obvious deformities. Extremities without clubbing, cyanosis , or edema. NEUROLOGICAL: Awake and alert. No obvious cranial nerve deficits. Motor grossly within normal limits. 5/5 muscle strength in bilateral upper and lower extremities. Normal speech. PSYCHIATRIC: Appropriate mood and affect; insight and judgment normal. Hospital Course Patient is a 77 female with minimal Past medical history who complains of 4 days of nausea and severe diffuse abd pain. Patient was admitted with acute pancreatitis secondary to alcoholic causes. She presented with left upper quadrant abdominal pain. Abdominal pelvis CT showing abnormal appearance of the peripancreatic tissue suggesting pancreatitis. Diverticulosis. MRCP performed showing no dilation of the hepatic biliary ducts. No filling defects. Pancreatic duct normal. Hepatitis panel negative. CA 19-9 antigen 148.9 likely reactive to pancreatitis. Gastroenterology followed patient during hospitalization. Lipase trended. Pain control. Nausea control. PPI continued. Placed on Creon. encouraged alcohol cessation. It was also found the patient had a urinary tract infection growing E. coli. Placed on Rocephin. Also had hypokalemia with replacement. Pt Condition on Discharge: Stable Discharge Disposition: Discharge Home Discharge Time: <= 30 minutes Discharge Instructions DIET: Follow Instructions for: As Tolerated, No Restrictions Speech Therapy-Diet Recommends: Regular Activities you can perform: Regular-No Restrictions Follow up Referrals: Gastroenterology - 10 Days with Emile Melton MD PCP Follow-up - 1 Week New Medications: Cefuroxime (Ceftin) 250 Mg Tab 250 MG PO BID for UTI, #10 TAB Hydrocodone/Acetaminophen (Hydrocodone-Acetamin 7.5-325) 7.5 Mg-325 Mg Tablet 1 TAB PO Q6H PRN for pain, #20 TAB Pancrelipase (Creon) 24,000-76,000-120,000 Units Cap 1 CAP PO TID for GI for 30 Days, #90 CAP Continued Medications: Esomeprazole DR (Nexium 24 HR) 20 Mg Capdr 20 MG PO DAILY for Reflux, CAP Zee Hill Aug 06, 2017 07:52
[2017-08-06 08:00] VITALS: BP 130/66; PULSE 88; RESP 18; TEMP 99.2; O2SAT 94
--- NOTE | 2017-08-06 08:19 | HHI.GIFU ---
GI Follow-up Note Consult Follow-up Subjective: Patient laying in bed , states she has nausea, no vomiting.Not feeling well today.Tolerated full liquid diet.No bowel movement.Still pain Objective: PHYSICAL EXAMINATION: Vitals signs stable No fever Vital Signs Date Time Temp Pulse Resp B/P (MAP) Pulse Ox O2 Delivery O2 Flow Rate FiO2 08/06/17 08:00 99.2 88 18 130/66 (87) 94 HEENT: Pupils round and reactive to light; normocephalic; atraumatic; no jaundice. Throat is clear. NECK: Neck is supple, no JVD, no lymphadenopathy. CHEST: Chest is clear to auscultation and percussion. CARDIAC: Regular rate and rhythm with no murmur gallop or rubs. ABDOMEN: Soft, nondistended,epigastric tenderness tender; no hepatosplenomegaly ; bowel sounds are present in all four quadrants. EXTREMITIES: No clubbing, cyanosis, or edema. SKIN: Normal; no rash; no jaundice. [employer]: No focal deficits; alert and oriented times three. Available Data (labs, X- Rays, Procedues) : Laboratory Tests Test 08/05/17 06:29 08/06/17 05:20 Blood Urea Nitrogen 7 MG/DL 8 MG/DL Creatinine 0.34 MG/DL 0.36 MG/DL Random Glucose 109 MG/DL 105 MG/DL Calcium Level 8.9 MG/DL 8.9 MG/DL Sodium Level 140 MEQ/L 137 MEQ/L Potassium Level 3.2 MEQ/L 3.2 MEQ/L Chloride Level 103 MEQ/L 100 MEQ/L Carbon Dioxide Level 29.7 MEQ/L 28.7 MEQ/L Anion Gap 7 MEQ/L 8 MEQ/L Estimat Glomerular Filtration Rate 187 ML/MIN 175 ML/MIN Lipase 1133 U/L 835 U/L Total Protein 7.2 GM/DL Albumin 2.9 GM/DL Alkaline Phosphatase 127 U/L Aspartate Amino Transf (AST/SGOT) 109 U/L Alanine Aminotransferase (ALT/SGPT) 43 U/L Total Bilirubin 1.0 MG/DL Direct Bilirubin 0.5 MG/DL Indirect Bilirubin 0.5 MG/DL ASSESSMENT/PLAN: Acute on chronic pancreatitis possible ETOH induced -slowly improving nausea secondary pancreatis elevated CA 19-9 possible secondary pancreatis -will need further eval op Recommendations HIDA scan today consider adding Phenergan if nausea not better add Creon with melas advance diet as tolerates avoid etoh, fatty foods It was a pleasure seeing Mona San. Thank you for this consult. Entered by: Edel Vides MD Aug 06, 2017 08:18
--- NOTE | 2017-08-06 08:45 | HHI.PR ---
Subjective Remarks Follow-up abdominal pain secondary to alcoholic acute pancreatitis. Patient seen and examined, lying in bed with complaints of continued nausea overnight. Status post HIDA scan which was normal. Gastroenterology following, recommendations for Creon and Phenergan if needed. Advance diet as tolerated. Continue to monitor lipase. Objective Vitals Vital Signs Date Time Temp Pulse Resp B/P (MAP) Pulse Ox O2 Delivery O2 Flow Rate FiO2 08/06/17 08:00 99.2 88 18 130/66 (87) 94 08/06/17 00:00 97.9 86 20 117/57 (77) 92 08/05/17 20:00 96.8 88 20 103/57 (72) 93 08/05/17 17:23 20 08/05/17 16:00 98.8 80 18 118/68 (85) 95 08/05/17 12:00 98.8 79 18 125/68 (87) 95 I/O 08/05/17 08/05/17 08/05/17 08/06/17 08/06/17 08/06/17 06:59 14:59 22:59 06:59 14:59 22:59 Intake Total 240 ml 600 ml 240 ml Balance 240 ml 600 ml 240 ml Intake Oral 240 ml 600 ml 240 ml # Voids 2 3 3 # Bowel Movements 0 0 Result Diagram: 08/04/17 0726 08/06/17 0520 Imaging Last Impressions Cholangiopancreatography MRI 08/01/17 0000 Signed Impressions: Service Date/Time: Tuesday, August 01, 2017 12:15 - CONCLUSION: No dilation of the intra-articular hepatic biliary ducts. No filling defects seen. The pancreatic duct is normal in dimension.. Chapincito Abbasi MD Abdomen/Pelvis CT 07/31/17 0000 Signed Impressions: Service Date/Time: Monday, July 31, 2017 17:07 - CONCLUSION: 1. Abnormal appearance the peripancreatic tissues with induration of the fat and poor delineation of the head and body. The findings suggest pancreatitis. No focal cystic areas seen and no calcifications. 2. Diffuse fatty change in the liver. 3. Diverticulosis of the colon without radiographic evidence of diverticulitis. 4. 3.7 cm low-density lesion in the left adnexal region of uncertain significance. This could be related to the ovary. Chapincito Abbasi MD Objective Remarks GENERAL: Well-developed, well-nourished patient in NAD. SKIN: Warm and dry. No rash. HEAD: Normocephalic. Atraumatic. EYES: Pupils equal and round. No scleral icterus. No injection or drainage. ENT: No nasal bleeding or discharge. Mucous membranes pink and moist. NECK: Supple. Trachea midline. CARDIOVASCULAR: Regular rate and rhythm. S1, S2 noted. No murmur appreciated. RESPIRATORY: No accessory muscle use. Clear to auscultation. Breath sounds equal bilaterally. GASTROINTESTINAL: Abdomen soft. Normoactive bowel sounds x4. Mild tenderness to palpation to left upper quadrant MUSCULOSKELETAL: No obvious deformities. Extremities without clubbing, cyanosis , or edema. NEUROLOGICAL: Awake and alert. No obvious cranial nerve deficits. Motor grossly within normal limits. 5/5 muscle strength in bilateral upper and lower extremities. Normal speech. PSYCHIATRIC: Appropriate mood and affect; insight and judgment normal. A/P Problem List: (1) Acute pancreatitis ICD Code: K85.90 - Acute pancreatitis without necrosis or infection, unspecified Status: Acute Assessment and Plan Patient is a 77 female with minimal Past medical history who complains of 4 days of nausea and severe diffuse abd pain improved by nausea and Morphine. Acute pancreatitis with left upper quadrant abdominal pain and nausea Abdominal pelvis CT reviewed showing abnormal appearance of the peripancreatic tissues, suggest pancreatitis. Diffuse fatty liver. Diverticulosis. 3.7 cm low-density lesion in the left adnexal region. Spoke to radiologist regarding lesion, appears to be ovarian cyst, patient is aware and this is chronic. MRCP performed showing no dilation of the hepatic biliary ducts. No filling defects. Pancreatic duct normal. Hepatitis panel negative. CA 19-9 antigen 148.9 likely reactive to pancreatitis. Gastroenterology following, appreciate input recommendations. HIDA scan done today, normal. IgG pending. Follow. CBC, essentially unremarkable. Afebrile. Lipase elevated, 2000-->1133-->835. Still complains of nausea, intermittently tolerating full liquid diet. Supportive care. Continue nausea overnight. Zofran available. Control pain, [place] available as needed. Continue Protonix 40 IV twice daily. Encouraged alcohol cessation. Urinary tract infection, urine culture growing E. coli. Placed on Rocephin. Continue. Hypokalemia, mild: Potassium level 3.2. Replaced. Continue to follow BMP. DVT prophylaxis: SCDs. Discharge Planning Anticipate discharge tomorrow if lipase is trending down and patient tolerating p.o. intake and resolution of nausea. Problem Qualifiers (1) Acute pancreatitis: Qualified Codes: K85.90 - Acute pancreatitis without necrosis or infection, unspecified Zee Hill Aug 06, 2017 08:45
[2017-08-06] MEDS: LIPASE/PROTEASE/AMYLASE (24,000/76,000/120,000) CAP PO SCH ×3 (09:00→18:37)
[2017-08-06] MEDS: DOCUSATE SODIUM 50 MG/SENNA 8.6 MG TAB PO SCH ×2 (10:25→22:53)
[2017-08-06] MEDS: ACETAMINOPHEN/HYDROcodone 325 MG/7.5 MG TAB PO PRN ×2 (10:25→20:11)
[2017-08-06] MEDS: ONDANSETRON HCL 4 MG/2 ML VIAL IV PUSH PRN (10:31)
[2017-08-06] MEDS: PANTOPRAZOLE SODIUM 40 MG VIAL IV PUSH SCH ×2 (10:32→22:53)
[2017-08-06] MEDS: HEPARIN SODIUM - SQ 10,000 UNITS/ML VIAL SQ SCH ×2 (10:32→22:52)
[2017-08-06] MEDS: cefTRIAXone INJ 1,000 MG in SODIUM CHLORIDE 0.9% INJ 100 ML IV SCH (10:32)
--- NOTE | 2017-08-06 11:41 | RADRPT ---
EXAM DATE/TIME: 08/06/2017 10:29 [facility] COMPARISON: No previous studies available for comparison. INDICATIONS : Abdomianl pain, nausea and vomiting for 4 days. DOSE: 4.2 mCi Tc99m Mebrofenin IV MEDICAL HISTORY : Carcinoma, basal cell. SURGICAL HISTORY : Hysterectomy. Cholecystectomy. Inguinal hernia repair. ENCOUNTER: Initial ACUITY: 4 - 6 days PAIN SCALE: 3/10 LOCATION: Right upper quadrant TECHNIQUE: Following the intravenous administration of radiotracer, dynamic sequential images wer e performed with continuous acquisition. FINDINGS: HEPATIC KINETICS: There is prompt uptake of radiotracer in the liver. No focal defects are seen. There is normal rate of washout from the hepatic parenchyma. BILIARY CLEARANCE: Activity is first seen in the extrahepatic biliary system at 10 minutes minute s. There is normal excretion into the small bowel. BILIARY ENTRIC REFLUX: None observed. CONCLUSION: Normal post cholecystectomy HIDA scan. Jayson Pacheco MD FACR on August 06, 2017 at 11:35 Board Certified Radiologist. This report was verified electronically.
[2017-08-06 12:00] VITALS: BP 111/64; PULSE 86; RESP 18; TEMP 97.6; O2SAT 92
[2017-08-06] MEDS ORDERED: CREON24 PO (12:37)
[2017-08-06] MEDS ORDERED: POTASSIUM CHLORIDE 10 MEQ CONTROLLED RELEASE TAB PO ONE (13:00)
[2017-08-06] MEDS: SODIUM CHLORIDE 0.9% FLUSH 10 ML FLUSH IV FLUSH SCH ×2 (14:43→22:52)
[2017-08-06 16:00] VITALS: BP 93/60; PULSE 83; RESP 18; TEMP 96; O2SAT 94
[2017-08-06] MEDS ORDERED: PROMETHAZINE HCL 25 MG TAB PO PRN (16:00)
[2017-08-06 20:00] VITALS: BP 119/69; PULSE 89; RESP 16; TEMP 97.8; O2SAT 95
[2017-08-07] VITALS: BP 118/73; PULSE 80; RESP 18; TEMP 98.3; O2SAT 94
[2017-08-07] MEDS: ACETAMINOPHEN/HYDROcodone 325 MG/7.5 MG TAB PO PRN ×2 (03:08→11:11)
[2017-08-07 07:19] LABS: CALCIUM 9.2 MG/DL (8.5-10.1)
[2017-08-07 07:20] LABS: BICARBONATE 28.8 MEQ/L (21.0-32.0)
[2017-08-07 07:23] LABS: CREATININE 0.32 MG/DL (0.50-1.00)
[2017-08-07 08:00] VITALS: BP 99/81; PULSE 84; TEMP 96.7; O2SAT 92
[2017-08-07] MEDS: LIPASE/PROTEASE/AMYLASE (24,000/76,000/120,000) CAP PO SCH (09:00)
[2017-08-07] MEDS: HEPARIN SODIUM - SQ 10,000 UNITS/ML VIAL SQ SCH (09:00)
[2017-08-07] MEDS: DOCUSATE SODIUM 50 MG/SENNA 8.6 MG TAB PO SCH (09:00)
[2017-08-07] MEDS ORDERED: KLOR25TA2 PO (09:38)
[2017-08-07] MEDS ORDERED: MIRA3350 PO (09:41)
[2017-08-07] MEDS ORDERED: PROM12.54 PO (09:41)
[2017-08-07] MEDS ORDERED: BISACODYL 10 MG SUPP RECTAL ONE (09:45)
[2017-08-07] MEDS: cefTRIAXone INJ 1,000 MG in SODIUM CHLORIDE 0.9% INJ 100 ML IV SCH (10:00)
[2017-08-07] MEDS: PANTOPRAZOLE SODIUM 40 MG VIAL IV PUSH SCH (11:10)
[2017-08-07] MEDS: SODIUM CHLORIDE 0.9% FLUSH 10 ML FLUSH IV FLUSH SCH (11:13)
== END 2017-08-07 12:28 | disposition home or self-care (01) | DRG 439 ==
LOC: PHED 16:09 → PHEDA 18:48 → PH3A 20:57
PROVIDERS: ADMIT Hospitalist; ATTEND Hospitalist
DX: K85.90 Acute pancreatitis without necrosis or infection, unspecified (principal); N39.0 Urinary tract infection, site not specified; E87.5 Hyperkalemia; K76.0 Fatty (change of) liver, not elsewhere classified; G62.9 Polyneuropathy, unspecified; K21.9 Gastro-esophageal reflux disease without esophagitis; K85.20 Alcohol induced acute pancreatitis without necrosis or infection; K86.0 Alcohol-induced chronic pancreatitis; E87.6 Hypokalemia; B96.20 Unspecified Escherichia coli [E. coli] as the cause of diseases classified elsewhere; K70.10 Alcoholic hepatitis without ascites; N83.202 Unspecified ovarian cyst, left side; M19.90 Unspecified osteoarthritis, unspecified site; Z72.89 Other problems related to lifestyle; Z88.1 Allergy status to other antibiotic agents; Z96.651 Presence of right artificial knee joint
CPT/HCPCS: 74176; 74181; 76377; 76937; 78226; 80048; 80053; 80061; 80074; 80076; 80307; 81001; 82784; 82787; 83520; 83690; 83735; 84132; 85025; 85610; 85730; 86255; 86301; 87077; 87086; 87186; 93005; 96374; A9537; C9113; J0696; J1644; J1650; J1815; J1885; J2270; J2405; J3475; J3480; J7030

== ENCOUNTER → 2017-11-12 | Outpatient (CLI) | payer MEDICARE, BC ==
[~2017-11-12] MED LIST changes: +CEFU1TAB18 PO; -CRANCAP2 PO; +CREON24 PO; +ESOM1CAP6 PO; +KLOR25TA2 PO; +MIRA3350 PO; -NEXI20CA PO; +PROM12.54 PO; -XARE10TA PO
--- NOTE | 2017-11-12 11:20 | RADRPT ---
EXAM DATE: 11/12/2017 10:49 AM EDT AGE/SEX: 77 years / Female INDICATIONS: Difficulty swallowing solids and liquids sometimes. Cough. CLINICAL DATA: This is the patient's initial encounter. Patient reports that signs and symptoms have been present for 3 months and indicates a pain score of 0/10. MEDICAL/SURGICAL HISTORY: Gastroesophageal reflux disease. None. COMPARISON: No prior [facility] exams available for comparison. FLUORO TIME: 1.1 IMAGE COUNT: 0 FINDINGS: A modified barium swallow was performed with speech pathology. Patient was given a variety of liquids to swallow. Normal deglutition without aspiration. For a full detailed report, see report by the speech pathologist. CONCLUSION: Normal deglutition without aspiration. Detailed report by speech pathology. Electronically signed by: Ke Gardiner MD 11/12/2017 11:19 AM EDT
== END ==
LOC: HRAD 09:53
PROVIDERS: ATTEND Internal Medicine Gastroenterology
DX: R13.10 Dysphagia, unspecified (principal); K21.9 Gastro-esophageal reflux disease without esophagitis
CPT/HCPCS: 74230; 92611; G8996; G8997; G8998